=== PATIENT | male | born 1950 | race Caucasian/White ===

== ENCOUNTER → 2016-05-10 | Outpatient (CLI) | payer OTHER ==
[~2016-05-10] MED LIST: ASPCH81X PO; LISI-725 PO; LPR100 PO; LSX20 PO; PLV75 PO; PRLSR20 PO; ZCR40 PO
--- NOTE | 2016-05-11 06:13 | PAP/PSG TECHNICIAN REPORT ---
[facility] Case Liner Polysomnogram Report Study name: None Report date: 05/11/2016 Study date: 05/10/2016 Referring Physician: JACOB BAZAN D.O. Name: RYAN SHEEHAN Interpreting Physician: Ryan Bolton M.D. Date of : 1950 Case Liner: Lucy Nesbitt, PSGT. Sex: Male Age: 65 StudyType: PSG Weight: 314 lbs Height: 65 years, Height 5' 11" : BMI: 43.79 Medications: omeprazole 20 mg, Aspirin 81 mg, Clopidogrel 75 mg, Simvasatin 40 mg, Lisinopril 40 mg, Metoprolol 100 mg, Patient History 65 yr old male in room 5, here for a split night study. Pt. has had coronary heart failure in the past from coronary artery disease.Pt. also states that he wakes often during sleep, has daytime fatigue and snores himself awake. Parameters Monitored NPSG: E1-M2, E2-M1, Fp1-M2, Fp2-M1, F3-M2, F4-M2, F4-M1, C3-M2, C4-M2, C4-M1, O1-M2, O2-M2, O2-M1, T3-M2, T4-M1, P3-M2, P4-M1, CHIN1, CHIN2, HR, EKG, Legs, PFLOW, SNOR, FLOW, CFLOW, Tidal Volume, THOR, ABDO, SpO2, PLTH, CPRESS, ETCO2 Wave, ETCO2, pH Sleep Architecture Sleep Stages Time at Lights Off 10:42:07 PM STAGES Time (min.) TST (%) Time at Lights On 5:03:37 AM Wake 214.5 -- Total Recording Time (TRT) 382.00 min. N1 9.5 6 Total Sleep Period (TSP) 188.0 min. N2 157.0 94 Total Sleep Time (TST) 166.5min. N3 0.0 0 Awake Time 215.5 min. REM 0.0 0 Wake after Sleep Onset 153.5 min. Sleep Efficiency (SE) 44 % Sleep Onset Latency (DARSHANA) 61.5 min. Number of Stage 1 Shifts None Awakenings 3 Stage Changes 19 Number of REM periods N/A REM 0.0 0 REM Latency NONE min. NREM 166.5 100 Body Position Analysis Supine Right Left Side Prone Vertical Total Sleep Time (min.) 56.8 94.0 72.5 166.50 0.0 14.8 Total Sleep Time (%) 0% 56% 44% 100 0% N/A% Total Sleep Time REM (min.) 0.0 0.0 0.0 None 0.0 0.0 Total Sleep Time NREM (min.) 0.0 94.0 72.5 None 0.0 0.0 Intermittent Wake (min.) 56.8 60.5 82.4 None 0.0 14.8 Total Sleep Period (%) 0% None None None None None Arousals Myoclonus (PLM) * Events Count Index Events Count Index Spontaneous 12 4 Events Awake (PLMW) 4 1.1 Respiratory 12 4.3 Events Asleep w/ Arousal (PLMA) 5 1.8 PLM 5 2 Events Asleep w/o Arousal (PLMS) 95 34.2 Snoring 12 4 Total Asleep 100 36.0 Total 41 15 Total 104 16 Respiratory Analysis * CA OA MA CH H RERA Total Count 0 8 0 0 140 0 148 Index 0.0 2.9 0.0 0 50.5 0 53.3 Mean Duration 0.0 20.0 0.0 0.00 18.7 0.0 18.8 Longest Duration 0.0 23.2 0.0 0.00 0.0 0.0 44.1 Respiratory Event Summary Total Supine ~Supine Right Left Prone REM NREM Apneas Count 8 N/A 8 8 0 N/A N/A 8 Index 2.9 N/A 3 5.1 0.0 N/A N/A 3 Hypopneas (4% Desat) Count 140 N/A 140 84 56 N/A N/A 140 Index 50.5 N/A 50 53.6 46.3 N/A N/A 50.5 Apneas & All Hypopneas Count 148 N/A 148 92 56 N/A N/A 148 Index 53.3 N/A 53 59 46 N/A N/A 53.3 Respiratory Events (Work Distributor+All Hyp+RERA) Count 148 N/A 148 92 56 N/A N/A 148 Index 53.3 N/A 53 58.7 46.3 N/A N/A 53.3 Respiratory Related Arousal Count 12 N/A 12 9 3 N/A N/A 12 Index 4.3 N/A 4 6 2 N/A N/A 4 Snoring Analysis Supine Right Left Prone REM NREM Total Snore duration 17.8 min Snores count N/A 534 208 N/A N/A 742 742 Snore mean duration 1.4 Sec Snores index N/A 341 172 N/A N/A 267.4 267.4 TST with snoring (%) 10.7% Desaturation Event Summary: Minimum %SpO2 Event Count Mean/Min/Max Duration(sec.) Desaturation Index % Time In Bed > 90 36 24.5 / 12.3 / 49.3 80.3 7.3 86 - 90 143 21.8 / 4.5 / 55.5 37.3 62.4 81 - 85 15 21.1 / 8.8 / 29.8 8.2 29.8 76 - 80 0 N/A 0.0 0.5 71 - 75 0 N/A 0.0 0.0 66 - 70 0 N/A 0.0 0.0 61 - 65 0 N/A 0.0 0.0 56 - 60 0 N/A 0.0 0.0 51 - 55 0 N/A 0.0 0.0 < 50 0 N/A 0.0 0.0 Total REM NREM Awake <50% 0.0 min. 0.0 min. 0.0 min. 0.0 min. 51 - 60% 0.0 min. 0.0 min. 0.0 min. 0.0 min. 61 - 70% 0.0 min. 0.0 min. 0.0 min. 0.0 min. 71 - 80% 1.7 min. 0.0 min. 0.4 min. 1.3 min. 81 - 90% 339.8 min. 0.0 min. 159.7 min. 180.2 min. 91 - 100% 26.9 min. 0.0 min. 6.0 min. 20.9 min. Average 87 0 86 87 Minimum SpO2 79 N/A 80 79 Desaturation Event Index 23.9 0.0 54.8 0.0 # Desat. Events below 89% 152 N/A 152 0 Time(%) with Saturation below 89% 74.1 0.0 38.2 35.9 Time(min.) with Saturation below 89% 273.0 0.0 140.7 132.3 Time (mins) REM (mins) NREM (mins) % of TST SpO2 Below 90% 152 N/A N152 92.7 SpO2 Below 88% 56 0 0 70 Heart Rate Analysis Min (bpm) Max (bpm) Average (bpm) Awake 33 127 63 NREM 52 68 61 REM N/A N/A N/A Overall 52 68 61 Supplemental O2 Values Minimum O2 level: None Value Start Time End Time Case Liner Comments PSG Study Mr. Sheehan slept in the right, left, and supine positions. No cardiac arrhythmia or PLM's noted. No bruxism noted. Snoring was noted and scored as a 3 on a scale of 1 through 5. (0=no snoring, 5=snoring loud enough to be heard through a closed door or down the hunter way) Mr. Sheehan awoke to use the restroom one time during the night. Mr. Sheehan stated, I did not sleep as well as I do when I am in my own bed. The final report will be interpreted and signed by a sleep physician. The completed physician report will then be placed in the patient medical record. Pt. didn't sleep well, he had long periods of wakefulness. He said he had a lot of trouble breathing with everything under his nose for the testing. When he did sleep he did have respiratory events along with hypoxemia throughout the study. Therapy (cm H2O) 0 TIB (min.) 381.0 TST (min.) 166.5 Sleep Onset (min.) 61.5 REM Onset From Sleep (min.) NONE Sleep Efficiency % 44 Wakefulness (%) 56 Wakefulness (min.) 215.5 NREM 1 (%) 6 NREM 1 (min.) 9.5 NREM 2 (%) 94 NREM 2 (min.) 157.0 NREM 3 (%) 0 NREM 3 (min.) 0.0 REM (%) 0 REM (min.) 0.0 # Arousals 41 Arousal Index 15 # Snore 742 Snore Index 267.4 AHI 53.3 AHI Supine N/A AHI Non-Supine 53 NREM AHI 53.3 REM AHI N/A RDI 53.3 # Obstructive Apnea 8 # Central Apnea 0 # Mixed Apnea 0 # Hypopneas 140 RERAs 0 Total Respiratory Events 148 Time Below SpO2 89% (min.) 140.7 Mean NREM SpO2 (%) 86 Mean REM SpO2 (%) N/A Mean Sleep SpO2 (%) 86 Min NREM SpO2 (%) 80 Min REM SpO2 (%) N/A Position Supine (min.) 56.8 Position Non-supine (min.) 166.5 LM Index Sleep 36.0 LM Index NREM 36.0 LM Index REM N/A Mean Heart Rate (bpm) 61 Min Heart Rate (bpm) 52
--- NOTE | 2016-05-12 07:19 | POLYSOMNOGRAPH REPORT ---
CLINICAL DATA: A 65-year-old male with BMI of 47.8, referred by Dr. Dodge for a sleep study. He requested a split night study, but that could not be performed. He has history of coronary artery disease and wakes often during sleep. He has daytime fatigue and snoring. SLEEP ARCHITECTURE: Total sleep period was 188 minutes. Total sleep time was 166.5 minutes.This was all non-REM sleep. Sleep onset latency was 61.5 minutes. REM wasnot achieved. Sleep efficiency was 45%. Awake after sleep onset was 158.5 minutes. Sleep consisted of stage N1 6%, N2 to 94%. AROUSAL DATA: 41 arousals were recorded for an index of 15 per hour. PERIODIC LIMB MOVEMENT DATA: Moderately elevated limb movements during sleep were noted. There were 100 PLMs noted for an index of 36 per hour with arousal index of 1.8 per hour. RESPIRATORY DATA: Severe sleep apnea/hypopnea was documented. The AHI was 53.3. There were 8 obstructive apneic episodes. The longest duration of apnea was 23.2 seconds. There were 140 hypopneic episodes. The mean duration of hypopnea was 18.7 seconds. OXIMETRY DATA: Nocturnal hypoxemia was seen. Oxygen shellie was 80%. Mean saturation was 87%. ELECTROCARDIOGRAM : Heart rates ranged from 52-68 beats per minute. No arrhythmias were noted. 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 Snoring was moderate, rated 3 on a scale of 1 through 5. The patient had long periods of wakefulness both at the beginning, through the middle, and at the end of the PSG, which precluded a split night study. He had a lot of trouble breathing with all the wiring and monitoring equipment in his nose. IMPRESSION: Severe sleep apnea/hypopnea with an apnea hypopnea index of 53.3 with nocturnal hypoxemia. RECOMMENDATIONS: The patient would benefit from a repeat sleep study with CPAP. If that is going to be considered, then it is recommended that a sleep aid such as Ambien 10 mg or Lunesta 3 mg be prescribed for the night of that CPAP titration study. MTDD
== END | disposition home or self-care (01) ==
LOC: C.NEUR 20:00
PROVIDERS: ATTEND Family Medicine
DX: R06.83 Snoring (principal); R40.0 Somnolence; I25.10 Atherosclerotic heart disease of native coronary artery without angina pectoris; I50.9 Heart failure, unspecified; R73.9 Hyperglycemia, unspecified; G47.30 Sleep apnea, unspecified; R09.02 Hypoxemia

== ENCOUNTER → 2016-06-02 | Outpatient (CLI) | payer OTHER ==
[2016-06-02 12:53] LABS: BLOOD UREA NITROGEN 18 mg/dl (7-18); BUN/CREATININE RATIO 18.1 (10-20); CALCIUM 9.3 mg/dl (8.5-10.1); CARBON DIOXIDE 24 mmol/L (21-32); CHLORIDE 104 mmol/L (98-107); CREATININE 0.99 mg/dl (0.60-1.40); GLUCOSE 109 mg/dl (70-99); POTASSIUM 4.7 mmol/L (3.5-5.1); SODIUM 139 mmol/L (136-145)
[2016-06-02 12:58] LABS: ALB/GLOB RATIO 1.1 (0.9-2); ALKALINE PHOSPHATASE 62 U/L (45-117); ALT/SGPT 58 U/L (12-78); AST/SGOT 45 U/L (15-37)
[2016-06-02 13:05] LABS: CHOLESTEROL/HDL RATIO 3.7
[2016-06-02 13:29] LABS: ESTIMATED AVERAGE GLUCOSE 128 mg/dl; HA1C FLAG Normal (Normal)
== END | disposition home or self-care (01) ==
LOC: C.LABPBG 09:01
PROVIDERS: ATTEND Internal Medicine
DX: I25.10 Atherosclerotic heart disease of native coronary artery without angina pectoris (principal); I10 Essential (primary) hypertension; E78.5 Hyperlipidemia, unspecified; R73.9 Hyperglycemia, unspecified

== ENCOUNTER → 2016-07-02 | Outpatient (CLI) | payer OTHER ==
--- NOTE | 2016-07-03 06:30 | PAP/PSG TECHNICIAN REPORT ---
[facility] Press Operator Apprentice Polysomnogram Report Study name: None Report date: 07/03/2016 Study date: 07/02/2016 Referring Physician: Araceli Westbrook PA-C Name: RYAN SHEEHAN Interpreting Physician: Ryan Bolton M.D. Date of : 1950 Press Operator Apprentice: Hernan Marte RPSGT. Sex: Male Age: 65 StudyType: PSG PAP Weight: 314 lbs Height: 65 years, Height 5' 10" BMI: 45.05 Medications: OMEPRAZOLE 20 MG, ASPIRIN 81 MG, CLOPIDOGREL BISULFATE 75 MG, SIMVASTATIN 40 MG, LISINOPRIL 40 MG, METOPROLOL TARTRATE 100 MG Patient History PATIENT HAD A SLEEP STUDY DONE IN APRIL OF 2016. HE WAS POSITIVE FOR VIVIENNE WITH AN AHI OF 53.3/HR. HE IS HERE TODAY FOR A CPAP TITRATION. RM 1 Parameters Monitored NPSG: E1-M2, E2-M1, Fp1-M2, Fp2-M1, F3-M2, F4-M2, F4-M1, C3-M2, C4-M2, C4-M1, O1-M2, O2-M2, O2-M1, T3-M2, T4-M1, P3-M2, P4-M1, CHIN1, CHIN2, HR, EKG, Legs, PFLOW, SNOR, FLOW, CFLOW, Tidal Volume, THOR, ABDO, SpO2, PLTH, CPRESS, ETCO2 Wave, ETCO2, pH Sleep Architecture Sleep Stages Time at Lights Off 10:14:00 PM STAGES Time (min.) TST (%) Time at Lights On 5:33:30 AM Wake 52.5 -- Total Recording Time (TRT) 440.00 min. N1 20.5 5 Total Sleep Period (TSP) 416.5 min. N2 209.5 54 Total Sleep Time (TST) 387.0min. N3 87.0 22 Awake Time 53.0 min. REM 70.0 18 Wake after Sleep Onset 30.0 min. Sleep Efficiency (SE) 88 % Sleep Onset Latency (DARSHANA) 22.5 min. Number of Stage 1 Shifts None Awakenings 26 Stage Changes 107 Number of REM periods 5 REM 70.0 18 REM Latency 88.5 min. NREM 317.0 82 Body Position Analysis Supine Right Left Side Prone Vertical Total Sleep Time (min.) 223.2 192.0 0.0 192.00 0.0 0.0 Total Sleep Time (%) 50% 50% 0% 50 0% N/A% Total Sleep Time REM (min.) 41.0 29.0 0.0 None 0.0 0.0 Total Sleep Time NREM (min.) 154.0 163.0 0.0 None 0.0 0.0 Intermittent Wake (min.) 28.2 24.3 0.0 None 0.0 0.0 Total Sleep Period (%) 51% None None None None None Arousals Myoclonus (PLM) * Events Count Index Events Count Index Spontaneous 30 5 Events Awake (PLMW) 68 77.7 Respiratory 6 1.1 Events Asleep w/ Arousal (PLMA) 9 1.4 PLM 9 1 Events Asleep w/o Arousal (PLMS) 90 14.0 Snoring 5 1 Total Asleep 99 15.3 Total 50 8 Total 167 23 Respiratory Analysis * CA OA MA CH H RERA Total Count 0 0 0 0 51 1 51 Index 0.0 0.0 0.0 0 7.9 0 8.1 Mean Duration 0.0 0.0 0.0 0.00 17.2 15.5 17.2 Longest Duration 0.0 0.0 0.0 0.00 0.0 15.5 30.0 Respiratory Event Summary Total Supine ~Supine Right Left Prone REM NREM Apneas Count 0 0 0 0 N/A N/A 0 0 Index 0.0 0 0 0.0 N/A N/A 0 0 Hypopneas (4% Desat) Count 51 25 26 26 N/A N/A 6 45 Index 7.9 7.7 8 8.1 N/A N/A 5.1 8.5 Apneas & All Hypopneas Count 51 25 26 26 N/A N/A 6 45 Index 7.9 8 8 8 N/A N/A 5.1 8.5 Respiratory Events (Photography [employer] Prints Curator+All Hyp+RERA) Count 51 26 26 26 N/A N/A 6 45 Index 8.1 8 8 8.1 N/A N/A 6.0 8.5 Respiratory Related Arousal Count 6 26 3 3 N/A N/A 1 6 Index 1.1 1 1 1 N/A N/A 1 1 Snoring Analysis Supine Right Left Prone REM NREM Total Snore duration 2.0 min Snores count 32 30 N/A N/A 11 51 62 Snore mean duration 1.9 Sec Snores index 10 9 N/A N/A 9.4 9.7 9.6 TST with snoring (%) 0.5% Desaturation Event Summary: Minimum %SpO2 Event Count Mean/Min/Max Duration(sec.) Desaturation Index % Time In Bed > 90 72 28.0 / 15.0 / 54.8 43.1 22.8 86 - 90 50 24.2 / 10.0 / 52.3 9.0 75.5 81 - 85 0 N/A 0.0 1.6 76 - 80 0 N/A 0.0 0.0 71 - 75 0 N/A 0.0 0.0 66 - 70 0 N/A 0.0 0.0 61 - 65 0 N/A 0.0 0.0 56 - 60 0 N/A 0.0 0.0 51 - 55 0 N/A 0.0 0.0 < 50 0 N/A 0.0 0.0 Total REM NREM Awake <50% 0.0 min. 0.0 min. 0.0 min. 0.0 min. 51 - 60% 0.0 min. 0.0 min. 0.0 min. 0.0 min. 61 - 70% 0.0 min. 0.0 min. 0.0 min. 0.0 min. 71 - 80% 0.0 min. 0.0 min. 0.0 min. 0.0 min. 81 - 90% 339.2 min. 47.0 min. 264.2 min. 28.0 min. 91 - 100% 100.3 min. 23.0 min. 52.8 min. 24.5 min. Average 89 89 89 90 Minimum SpO2 83 83 83 86 Desaturation Event Index 12.4 12.0 9.5 33.1 # Desat. Events below 89% 83 12 47 24 Time(%) with Saturation below 89% 34.5 7.3 25.2 2.0 Time(min.) with Saturation below 89% 151.6 32.1 110.9 8.7 Time (mins) REM (mins) NREM (mins) % of TST SpO2 Below 90% 63 14 N49 64.2 SpO2 Below 88% 26 0 0 12 Heart Rate Analysis Min (bpm) Max (bpm) Average (bpm) Awake 51 67 57 NREM 50 65 56 REM 51 60 55 Overall 50 65 56 Supplemental O2 Values Minimum O2 level: None Value Start Time End Time Press Operator Apprentice Comments Mr. Sheehan slept in the right, left, supine and prone positions. PVC's noted. Leg movements noted. No bruxism noted. CPAP was initiated at +4 CMH2O and up-titrated to an optimal level of + [id number], which nearly eliminated all respiratory events and snoring. A [employer] size medium simplus mask was used during titration Mr. Sheehan awoke to use the restroom 0 times during the night. Mr. Sheehan stated I slept as well as I do when I am in my own bed. 1l/min was added at 4:24 am and was increased to 2l/min at 4:41 am. The final report will be interpreted and signed by a sleep physician. The completed physician report will then be placed in the patient medical record. Therapy Event: Therapy (cm H20) 4 8 9 10 11 12 13 15 16 Total Time at Pressure (min.) 3.9 25.3 91.4 51.7 23.7 21.0 20.1 7.6 194.8 TST at Pressure (min.) 0.0 5.1 91.4 47.2 22.2 19.5 13.1 7.6 180.8 # Periods 1 1 1 1 1 1 1 1 1 Sleep Onset (min.) N/A 18.6 0.0 0.0 0.0 0.0 0.0 0.0 0.0 REM Onset (min.) N/A N/A 81.9 0.0 N/A 14.5 0.0 N/A 67.8 Sleep Efficiency % 0 20 100 91 93 92 65 100 92 Wakefulness (%) 100.0 79.7 0.0 8.7 6.3 7.2 34.8 0.0 7.2 Wakefulness (min.) 3.9 20.1 0.0 4.5 1.5 1.5 7.0 0.0 14.0 NREM 1 (%) 0.0 9.9 1.1 5.8 10.5 7.2 7.7 5.9 4.1 NREM 1 (min.) 0.0 2.5 1.0 3.0 2.5 1.5 1.6 0.4 8.0 NREM 2 (%) 0.0 10.4 30.5 69.1 74.7 64.2 25.1 94.1 51.2 NREM 2 (min.) 0.0 2.6 27.9 35.8 17.7 13.5 5.0 7.2 99.8 NREM 3 (%) 0.0 0.0 58.0 0.0 8.4 0.0 0.0 0.0 16.4 NREM 3 (min.) 0.0 0.0 53.0 0.0 2.0 0.0 0.0 0.0 32.0 REM (%) 0.0 0.0 10.4 16.4 0.0 21.5 32.3 0.0 21.0 REM (min.) 0.0 0.0 9.5 8.5 0.0 4.5 6.5 0.0 41.0 # Arousals N/A 0 6 7 10 3 4 2 18 Arousal Index N/A 0.0 3.9 8.9 27.0 9.3 18.3 15.8 6.0 # Snore N/A 0 13 7 8 2 2 1 29 Snore Index N/A 0.0 8.5 8.9 21.6 6.2 9.2 7.9 9.6 AHI N/A 58.6 1.3 7.6 18.9 12.3 41.2 23.7 5.0 AHI Supine N/A N/A N/A N/A N/A N/A 64.1 23.7 5.0 AHI Non-Supine N/A 58.6 1.3 7.6 18.9 12.3 18.3 N/A N/A NREM AHI N/A 58.6 1.5 9.3 18.9 8.0 63.6 23.7 5.6 REM AHI N/A N/A 0.0 0.0 N/A 26.7 18.5 N/A 2.9 RDI N/A 58.6 1.3 7.6 18.9 12.3 41.2 23.7 5.3 # Obstructive N/A 0 0 0 0 0 0 0 0 # Central Ap N/A 0 0 0 0 0 0 0 0 # Mixed N/A 0 0 0 0 0 0 0 0 # Hypopneas N/A 5 2 6 7 4 9 3 15 RERAS N/A 0 0 0 0 0 0 0 1 Total Respiratory Events N/A 5 2 6 7 4 9 3 16 Time Below SpO2 89.00% (min.) 0.0 2.8 53.1 8.4 2.0 3.4 4.3 3.6 65.1 Mean NREM SpO2 (%) N/A 88 88 90 90 90 88 88 89 Mean REM SpO2 (%) N/A N/A 87 89 N/A 89 90 N/A 89 Mean Sleep SpO2 (%) N/A 88 88 89 90 90 89 88 89 Min NREM SpO2 (%) N/A 84 83 85 87 87 83 86 84 Min REM SpO2 (%) N/A N/A 83 83 N/A 87 87 N/A 84 Position Supine (min.) 0.0 0.0 0.0 0.0 0.0 0.0 6.6 7.6 180.8 Position Non-supine (min.) 0.0 5.1 91.4 47.2 22.2 19.5 6.5 0.0 0.0 LM Index Sleep N/A 35.1 8.5 22.9 35.1 27.8 22.9 31.6 11.3 LM Index NREM N/A 35.1 5.9 26.3 35.1 16.1 27.3 31.6 7.3 LM Index REM N/A N/A 31.5 7.1 N/A 66.7 18.5 N/A 24.9 Mean Heart Rate (bpm) N/A 56 56 55 55 54 55 56 57 Min Heart Rate (bpm) N/A 53 52 50 52 51 51 52 52
--- NOTE | 2016-07-05 15:00 | POLYSOMNOGRAPH REPORT ---
CLINICAL DATA: 65-year-old male with BMI of 45 referred by Araceli Westbrook PA-C for CPAP titration study. He had a baseline sleep study done in April 2016, which showed severe VIVIENNE with an AHI of 53.3. SLEEP ARCHITECTURE: Total sleep period was 416.5 minutes. Total sleep time was 387 minutes divided between 317 minutes of non-REM sleep and 70 minutes of REM sleep. Sleep onset latency was 22.5 minutes. REM latency was 88.5 minutes. Sleep efficiency was 88%. Wake after sleep onset was 30 minutes. Sleep consisted of stage N1 5%, N2 54%, N3 22%, REM 18%. AROUSAL DATA: 50 arousals were recorded for an index of 8 per hour. 30 were spontaneous. PLM DATA: 99 limb movements during sleep were noted for an index of 15.2 per hour with arousal index of 41.4 per hour. RESPIRATORY DATA: The AHI was 7.9. There were 51 hypopneic episodes. The mean duration of hypopnea was 17.2 seconds. OXIMETRY DATA: Nocturnal hypoxemia was seen. Oxygen shellie was 83%. Mean saturation was 89%. Time below 88% was 26 minutes. EKG: Heart rates ranged from 50-65 beats per minute. PVCs were noted. 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 CPAP was titrated up to 16 cm of water pressure using a [employer] size medium Simplus mask. In spite of elimination of the patient's sleep apnea, he continued to have nocturnal hypoxemia and therefore at 4:24 a.m. the patient was started on oxygen and it was increased total at 2 liters per minute. With the addition of oxygen, oxygen saturation did improve significantly. At his final pressure setting, the patient slept for 180.8 minutes with an AHI of 5. IMPRESSION: Severe sleep apnea/hypopnea and severe nocturnal hypoxemia corrected with CPAP 16 cm of water pressure with oxygen 2 liters per minute using a [employer] medium Simplus mask. RECOMMENDATIONS: The patient should be started on the above noted treatment regimen and seen back in followup within 90 days to document efficacy and compliance. MTDD
== END | disposition home or self-care (01) ==
LOC: C.NEUR 20:00
PROVIDERS: ATTEND Physician Assistant Medical
DX: G47.33 Obstructive sleep apnea (adult) (pediatric) (principal); R06.83 Snoring; R40.0 Somnolence

== ENCOUNTER → 2016-12-20 | Outpatient (CLI) | payer OTHER ==
[2016-12-20 12:09] LABS: BASO % 0.3 %; BASO ABS # 0.02 K/uL (0-0.2); COMPLETE YES; EOS % 2.2 %; HEMATOCRIT 50.3 % (42-52); IG% 0.2 %; LYMPH % 29.9 %; LYMPH ABS # 1.91 K/uL (1.2-3.4); MEAN CELL VOLUME 92.1 fL (80-100); MEAN CORPUSCULAR HEMOGLOBIN 29.7 pg (25-34); MEAN CORPUSCULAR HGB CONC 32.2 g/dl (32-36); MEAN PLATELET VOLUME 9.8 fL (7.4-10.4); MONO % 11.9 %; NEUT % 55.5 %; PLATELET COUNT 257 K/uL (130-400); RED BLOOD COUNT 5.46 M/uL (4.7-6.1); WHITE BLOOD COUNT 6.39 K/uL (4.8-10.8)
[2016-12-20 12:18] LABS: ALT/SGPT 55 U/L (12-78); AST/SGOT 41 U/L (15-37); BLOOD UREA NITROGEN 20 mg/dl (7-18); CALCIUM 9.3 mg/dl (8.5-10.1); CARBON DIOXIDE 27 mmol/L (21-32); CHLORIDE 105 mmol/L (98-107); GLUCOSE 103 mg/dl (70-99); POTASSIUM 4.8 mmol/L (3.5-5.1); SODIUM 138 mmol/L (136-145)
[2016-12-20 12:28] LABS: ALKALINE PHOSPHATASE 67 U/L (45-117); PROSTATE SPECIFIC ANTIGEN 0.604 ng/ml (0.000-4.000)
[2016-12-20 12:34] LABS: ESTIMATED AVERAGE GLUCOSE 128 mg/dl; HA1C FLAG Normal (Normal)
--- NOTE | 2016-12-27 08:55 | CODING QUERY MEDICAL NECESSITY ---
SUPPORTING DIAGNOSIS NEEDED Dr. Ashley, A supporting diagnosis is required for the test/procedure performed on this patient in order for us to be reimbursed by the patient's insurance. Please provide a supporting diagnosis for the following test/procedure listed below next to the test name along with your signature. *If there is no additional diagnosis for this patient that would support the following test/procedure please document that below next to the test/procedure. Test(s)/Procedure(s) that require a supporting diagnosis: * [id number] PSA DIAGNOSIS: DATE OF SERVICE: 12/20/16 Provider Signature: Date: Thank you David Vela [facility] Information Management Once completed, please kindly fax back to [phone] For questions please call [phone]
== END | disposition home or self-care (01) ==
LOC: C.LABPBG 09:53
PROVIDERS: ATTEND Internal Medicine
DX: I25.10 Atherosclerotic heart disease of native coronary artery without angina pectoris (principal); I10 Essential (primary) hypertension; R04.0 Epistaxis; Z68.42 Body mass index [BMI] 45.0-49.9, adult; G47.34 Idiopathic sleep related nonobstructive alveolar hypoventilation; R73.09 Other abnormal glucose; E78.5 Hyperlipidemia, unspecified; E78.6 Lipoprotein deficiency; Z12.5 Encounter for screening for malignant neoplasm of prostate

== ENCOUNTER 2017-05-16 11:06 | Emergency (ER) | payer OTHER ==
[~2017-05-16] VITALS: Ht 177.8 cm; Wt 143.0 kg
[2017-05-16 11:18] VITALS: Ht 177.8 cm; Wt 143.0 kg
[2017-05-16 12:21] VITALS: TEMP 36.6
[2017-05-16 12:29] LABS: BASO % 0.5 %; BASO ABS # 0.03 K/uL (0-0.2); EOS % 1.7 %; EOS ABS # 0.11 K/uL (0-0.5); HEMATOCRIT 49.1 % (42-52); HEMOGLOBIN 16.6 g/dL (14.0-18.0); IG# 0.01 K/uL (0.00-0.02); LYMPH % 34.8 %; MEAN CELL VOLUME 91.1 fL (80-100); MEAN CORPUSCULAR HEMOGLOBIN 30.8 pg (25-34); MEAN CORPUSCULAR HGB CONC 33.8 g/dl (32-36); MEAN PLATELET VOLUME 9.2 fL (7.4-10.4); MONO ABS # 0.73 K/uL (0.11-0.59); NEUT % 51.8 %; NEUT ABS # 3.43 K/uL (1.4-6.5); PLATELET COUNT 223 K/uL (130-400); RED CELL DISTRIBUTION WIDTH CV 12.9 % (11.5-14.5); RED CELL DISTRIBUTION WIDTH SD 42.8 fL (36.4-46.3); WHITE BLOOD COUNT 6.61 K/uL (4.8-10.8)
[2017-05-16 12:41] LABS: PTT PATIENT 27.7 SECONDS (21.0-31.0)
[2017-05-16 12:48] LABS: ALBUMIN 3.9 gm/dl (3.4-5.0); CALCIUM 9.6 mg/dl (8.5-10.1); CREATININE 1.11 mg/dl (0.60-1.40); POTASSIUM 4.5 mmol/L (3.5-5.1)
[2017-05-16 12:50] LABS: TOTAL PROTEIN 7.6 gm/dl (6.4-8.2)
[2017-05-16 13:20] VITALS: BP 111/65; PULSE 54; O2SAT 93
--- NOTE | 2017-05-16 17:13 | EMERGENCY ROOM VISIT NOTE ---
History Report prepared by Ashanti: Darvin Eastman Under the Supervision of: Dr. Neo Mesa M.D. First contact with patient: 11:34 Chief Complaint: GI ASSESSMENT Stated Complaint: PASSING BLOOD Nursing Triage Summary: c/o GI bleed a couple weeks ago it started and it has been getting progressively worse pt states its bright red and turns the bowl red diffuse abd pain pt is on ASA and plavix History of Present Illness The patient is a 66 year old male who presents to the Emergency Room with complaints of worsening rectal bleeding that started a couple weeks ago. He says that he only having occasional and minimal rectal bleeding initially, but over the past few days the bleeding has worsened, and for the past couple days, every bowel movement has been somewhat bloody. The patient states that the blood is bright red, and it colors the water in the commode. He notes that the blood is mixed in with the stool, and the stool is "diarrhea-like". The patient adds that he has been having a cramping sensation in his abdomen, which gets better after having a bowel movement. The patient denies any weakness, lightheadedness, fevers, vomiting, changes in breathing, chest pain, urinary symptoms, or pain with defecation. The patient states that his stools were dark but not black. He notes that he has had a bit of rectal bleeding in the past, but nothing as bad as his current bleeding. The patient says that he is on Plavix and Aspirin for heart issues including stent placement. He says that he does not feel like he is having a heart attack. The patient says that he is not on any other blood thinners. He notes that he has a history of colonoscopies, the last one being 5 years ago. He had polyps that were removed, but diverticulosis was never noted. The patient has another colonoscopy scheduled for June. Source of History: patient, spouse/significant other Onset: A couple weeks ago Position: other (rectal) Symptom Intensity: bright red and colors water in commode Quality: other (bleeding) Timing: worsening Associated Symptoms: + abdominal pain (cramping), + diarrhea, No fevers, No chest pain, No SOB (any changes), No vomiting, No urinary symptoms, No weakness (or lightheadedness) Note: Associated symptoms: Denies black stools but notes they are dark. Denies pain with defecation. Review of Systems See HPI for pertinent positives & negatives. A total of 10 systems reviewed and were otherwise negative. Past Medical & Surgical Medical Problems: (1) Chest pain (2) Heart disease (3) HTN (hypertension) Surgical Problems: (1) Post-operative state Family History Diabetes mellitus FH: heart disease Hypertension Social History Smoking Status: Former Smoker Alcohol Use: none Marital Status: Housing Status: lives with family Occupation Status: retired Current/Historical Medications Scheduled Aspirin (Aspirin Chewable), 81 MG PO QAM Clopidogrel Bisulfate (Clopidogrel), 75 MG PO QAM Lisinopril (Zestril), 20 MG PO QAM Metoprolol Tartrate (Metoprolol Tartrate), 100 MG PO BID Omeprazole (Prilosec), 20 MG PO QAM Simvastatin (Simvastatin), 40 MG PO QAM Scheduled PRN Furosemide (Furosemide), 20 MG PO QAM PRN for edema, dyspnea Allergies Coded Allergies: No Known Allergies (Unverified , 05/16/17) Physical Exam Vital Signs Date Time Temp Pulse Resp B/P (MAP) Pulse Ox O2 Delivery O2 Flow Rate FiO2 05/16/17 13:20 54 18 111/65 93 Room Air 05/16/17 12:30 54 05/16/17 12:21 36.6 57 18 117/67 93 Room Air 05/16/17 11:18 36.6 54 16 149/87 93 Physical Exam Constitutional: Vital signs reviewed. Eyes: Pupils are equal round reactive to light. Conjunctiva are noninjected. ENT: Pharynx is clear without erythema or exudate. Mucous membranes are moist. Neck supple without meningeal signs. Respiratory: Clear to auscultation bilaterally. Breath sounds are equal bilaterally. Cardiovascular: Regular rate and rhythm. No rubs or gallops. GI: Soft, nondistended and nontender. Bowel sounds are present. Rectal: Skin tag at 9 o'clock position. No fissures or hemorrhoids. Scant amount of blood, no stool. Musculoskeletal: No peripheral edema. No lower extremity tenderness. Integumentary: No cyanosis. Neurological: The patient is awake and alert. No focal deficits. Psychiatric: Normal affect. Medical Decision & Procedures Laboratory Results 05/16/17 11:55 Red Blood Count 5.39, Mean Corpuscular Volume 91.1, Mean Corpuscular Hemoglobin 30.8, Mean Corpuscular Hemoglobin Concent 33.8, Mean Platelet Volume 9.2, Neutrophils (%) (Auto) 51.8, Lymphocytes (%) (Auto) 34.8, Monocytes (%) (Auto) 11.0, Eosinophils (%) (Auto) 1.7, Basophils (%) (Auto) 0.5, Neutrophils # (Auto ) 3.43, Lymphocytes # (Auto) 2.30, Monocytes # (Auto) 0.73, Eosinophils # (Auto ) 0.11, Basophils # (Auto) 0.03 05/16/17 11:55 Test 05/16/17 11:55 White Blood Count 6.61 K/uL (4.8-10.8) Red Blood Count 5.39 M/uL (4.7-6.1) Hemoglobin 16.6 g/dL (14.0-18.0) Hematocrit 49.1 % (42-52) Mean Corpuscular Volume 91.1 fL (80-100) Mean Corpuscular Hemoglobin 30.8 pg (25-34) Mean Corpuscular Hemoglobin Concent 33.8 g/dl (32-36) Platelet Count 223 K/uL (130-400) Mean Platelet Volume 9.2 fL (7.4-10.4) Neutrophils (%) (Auto) 51.8 % Lymphocytes (%) (Auto) 34.8 % Monocytes (%) (Auto) 11.0 % Eosinophils (%) (Auto) 1.7 % Basophils (%) (Auto) 0.5 % Neutrophils # (Auto) 3.43 K/uL (1.4-6.5) Lymphocytes # (Auto) 2.30 K/uL (1.2-3.4) Monocytes # (Auto) 0.73 K/uL (0.11-0.59) Eosinophils # (Auto) 0.11 K/uL (0-0.5) Basophils # (Auto) 0.03 K/uL (0-0.2) RDW Standard Deviation 42.8 fL (36.4-46.3) RDW Coefficient of Variation 12.9 % (11.5-14.5) Immature Granulocyte % (Auto) 0.2 % Immature Granulocyte # (Auto) 0.01 K/uL (0.00-0.02) Prothrombin Time 10.7 SECONDS (9.0-12.0) Prothromb Time International Ratio 1.0 (0.9-1.1) Activated Partial Thromboplast Time 27.7 SECONDS (21.0-31.0) Partial Thromboplastin Ratio 1.1 Anion Gap 8.0 mmol/L (3-11) Est Creatinine Clear Calc Drug Dose 91.0 ml/min Estimated GFR () 78.7 Estimated GFR (Non- 67.9 BUN/Creatinine Ratio 18.4 (10-20) Calcium Level 9.6 mg/dl (8.5-10.1) Total Bilirubin 0.5 mg/dl (0.2-1) Direct Bilirubin 0.1 mg/dl (0-0.2) Aspartate Amino Transf (AST/SGOT) 34 U/L (15-37) Alanine Aminotransferase (ALT/SGPT) 59 U/L (12-78) Alkaline Phosphatase 58 U/L (45-117) Total Protein 7.6 gm/dl (6.4-8.2) Albumin 3.9 gm/dl (3.4-5.0) Lipase 104 U/L (73-393) Laboratory results as reviewed by me. ED Course 1135: The patient was evaluated in room C10. A complete history and physical exam was performed. 1301: I reevaluated the patient and talked to him about his test results. We will page Dr. Ashley to see if he can move up the patient's colonoscopy which is scheduled for June. 1310: I discussed the patient with Dr. Ashley - [facility] medicine - he will arrange for an earlier colonoscopy and will see the patient in the office. 1311: Upon reevaluation, the patient appeared to be resting comfortably. I reviewed return instructions with the patient and his . They verbalized agreement of the treatment plan. The patient was discharged home. Medical Decision This is a 66-year-old male who presents with rectal bleeding. Differential diagnosis includes diverticulosis, GI bleed, AVM, anemia, hemorrhoid, mass. I did perform a limited focused review of portions of the patient's old chart on the electronic medical record. The patient has had no recent pertinent visits to this hospital. I did evaluate the patient as noted above. IV access was established. I did order and review the patient's blood work as noted in the electronic medical record. He is not anemic. The patient is hemodynamically stable. I discussed his test results with him. He states he does not have a significant amount of bleeding with his bowel movements but they are persistent. I did discuss the case with Dr. Fabian Ashley. He will follow with the patient as an outpatient and schedule an earlier colonoscopy for him. I did discuss the plan with the patient. He was advised to return immediately should he have worsening symptoms or develop new symptoms as described below. Medication Reconcilliation Current Medication List: was personally reviewed by me Blood Pressure Screening Patient's blood pressure: Elevated blood pressure Consults Time Called: 1307 Consulting Physician: Dr. Ashley - [facility] [place] [facility] medicine Returned Call: 1310 I discussed the patient with Dr. Gabi Helton [facility] [place] [facility] - he will arrange for an earlier colonoscopy and will see the patient in the office. Impression Primary Impression: Rectal bleeding Scribe Attestation The scribe's documentation has been prepared under my direct and personally reviewed by me in its entirety. I confirm that the note above accurately reflects all work, treatment, procedures, and medical decision making performed by me. Departure Information Dispostion Home / Self-Care Referrals Fabian Ashley M.D. (PCP) Patient Instructions Bleeding Rectal, My [facility] Additional Instructions You have been examined and treated today on an emergency basis only. This is not a substitute for, or an effort to provide, complete comprehensive medical care. It is impossible to recognize and treat all injuries or illnesses in a single emergency department visit. It is therefore important that you follow up closely with your physician. Call as soon as possible for an appointment. Return for worsening symptoms or if you develop black or tarry stools, shortness of breath, chest pain or discomfort, weakness or lightheadedness, abdominal pain or any other concerning symptoms.
== END 2017-05-16 13:27 | disposition home or self-care (01) ==
LOC: C.EDB 11:07 → C.EDC 13:27
DX: K62.5 Hemorrhage of anus and rectum (principal); I10 Essential (primary) hypertension; Z79.01 Long term (current) use of anticoagulants; Z79.82 Long term (current) use of aspirin; Z95.5 Presence of coronary angioplasty implant and graft; Z87.891 Personal history of nicotine dependence; Z83.3 Family history of diabetes mellitus; Z82.49 Family history of ischemic heart disease and other diseases of the circulatory system

== ENCOUNTER → 2017-05-19 | Outpatient (CLI) | payer OTHER ==
[~2017-05-19] MED LIST changes: +FURO-85 PO; +LISI40TA PO
[2017-05-19 12:11] LABS: BASO % 0.3 %; BASO ABS # 0.02 K/uL (0-0.2); EOS % 1.3 %; EOS ABS # 0.08 K/uL (0-0.5); HEMATOCRIT 46.3 % (42-52); HEMOGLOBIN 16.1 g/dL (14.0-18.0); IG# 0.01 K/uL (0.00-0.02); LYMPH % 32.7 %; LYMPH ABS # 2.02 K/uL (1.2-3.4); MEAN CELL VOLUME 91.1 fL (80-100); MEAN CORPUSCULAR HEMOGLOBIN 31.7 pg (25-34); MEAN CORPUSCULAR HGB CONC 34.8 g/dl (32-36); MONO % 8.4 %; MONO ABS # 0.52 K/uL (0.11-0.59); NEUT % 57.1 %; NEUT ABS # 3.53 K/uL (1.4-6.5); PLATELET COUNT 230 K/uL (130-400); RED CELL DISTRIBUTION WIDTH CV 12.8 % (11.5-14.5); RED CELL DISTRIBUTION WIDTH SD 43.1 fL (36.4-46.3); WHITE BLOOD COUNT 6.18 K/uL (4.8-10.8)
== END | disposition home or self-care (01) ==
LOC: C.LABPBG 10:57
PROVIDERS: ATTEND Internal Medicine
DX: K62.5 Hemorrhage of anus and rectum (principal); R19.7 Diarrhea, unspecified

== ENCOUNTER → 2017-05-30 | Day surgery (SDC) | payer OTHER ==
[2017-05-25 11:35] VITALS: Ht 177.8 cm; Wt 143.2 kg
[~2017-05-30] VITALS: Ht 177.8 cm; Wt 143.2 kg
[~2017-05-30] MED LIST changes: +LIDOCAINE HCL 2% 2 ML VIAL (20MG/ML) ONE; -LISI-725 PO; -LSX20 PO; +PROPOFOL IV EMULSION 10 MG/ML 20 ML VIAL IV ONE; +SODIUM CHLORIDE 0.9% 500ML 500 ML IV ONE
[2017-05-30 09:24] VITALS: TEMP 36.9
--- NOTE | 2017-05-30 09:46 | Endo History and Physical ---
History & Physical Date of Service: May 30, 2017. Chief Complaint: Rectal bleeding Referring Physician: Fabian Ashley History of Present Illness 66 yo CM who presents for colonoscopy secondary to rectal bleeding. Past Medical History Angioplasty/Stent, Reflux, High Cholesterol, Sleep Apnea, Heart Disease, Hypertension, PR Past Surgical History Hx Cardiac Surgery: Yes (MULTIPLE HEART CATH, STENTS X2; CABG X2 VESSELS) Hx Internal Defibrillator: No Hx Pacemaker: No Hx Abdominal Surgery: No Hx of Implantable Prosthesis: No Hx Post-Op Nausea and Vomiting: No Hx Cancer Surgery: Yes (SKIN CANCER EXCISION FROM LT ARM) Hx Thoracic Surgery: No Hx Orthopedic: Yes (LT/RT KANE) Hx Urinary Tract Surgery: No Family History None Social History Smoking Status: Former Smoker Hx Substance Use: No Hx Alcohol Use: Yes (SOCIAL/OCCASIONAL) Allergies Coded Allergies: No Known Allergies (Unverified , 05/30/17) Current Medications Reported Home Medications Medications Dose Route/Sig Max Daily Dose Days Date Category Lasix (Furosemide) 20 Mg Tab 20 Mg PO DAILY PRN 05/25/17 Reported Zestril (Lisinopril) 40 Mg Tab 40 Mg PO QAM 05/25/17 Reported Aspirin Chewable (Aspirin) 81 Mg Chew 81 Mg PO QAM 04/08/15 Reported Simvastatin 40 Mg Tab 40 Mg PO QAM 08/16/14 Reported Prilosec (Omeprazole) 20 Mg Capcr 20 Mg PO QAM 08/16/14 Reported Clopidogrel (Clopidogrel Bisulfate) 75 Mg Tab 75 Mg PO QAM 08/16/14 Reported Metoprolol Tartrate 100 Mg Tab 100 Mg PO BID 08/16/14 Reported Vital Signs Weight (Kilograms): 143.18 Height (Feet): 5 Height (Inches): 10 Date Time Temp Pulse Resp B/P (MAP) Pulse Ox O2 Delivery O2 Flow Rate FiO2 05/30/17 09:42 56 20 193/115 (141) 94 Room Air 05/30/17 09:24 36.9 57 20 182/92 (122) 94 Room Air Physical Exam General Appearance: WD/WN, no apparent distress Respiratory/Chest: Auscultation: breath sounds normal Cardiovascular: Heart Auscultation: RRR Abdomen: Bowel Sounds: normal Inspection & Palpation: soft, non-distended, no tenderness, guarding & rebound Assessment and Plan Assessment: 66 yo CM who presents for colonoscopy secondary to rectal bleeding. Plan: Proceed with colonoscopy.
--- NOTE | 2017-05-30 10:47 | GI REPORT ---
Procedure Date: 05/30/2017 9:46 AM Procedure: Colonoscopy Indications: Rectal bleeding Medicines: Monitored Anesthesia Care Complications: No immediate complications. Estimated Blood Loss: Estimated blood loss: none. Procedure: Pre-Anesthesia Assessment: - Prior to the procedure, a History and Physical was performed, and patient medications and allergies were reviewed. The patient's tolerance of previous anesthesia was also reviewed. The risks and benefits of the procedure and the sedation options and risks were discussed with the patient. All questions were answered, and informed consent was obtained. Prior Anticoagulants: The patient last took aspirin 7 days and Plavix (clopidogrel) 7 days prior to the procedure. ASA Grade Assessment: III - A patient with severe systemic disease. After reviewing the risks and benefits, the patient was deemed in satisfactory condition to undergo the procedure. After I obtained informed consent, the scope was passed under direct vision. Throughout the procedure, the patient's blood pressure, pulse, and oxygen saturations were monitored continuously. The scope was introduced through the anus and advanced to the terminal ileum. The colonoscopy was performed without difficulty. The patient tolerated the procedure well. The quality of the bowel preparation was good. The terminal ileum, ileocecal valve, appendiceal orifice, and rectum were photographed. Findings: The perianal and digital rectal examinations were normal. Four sessile polyps were found in the ascending colon. The polyps were 4 to 8 mm in size. These polyps were removed with a hot snare. Resection and retrieval were complete. To prevent bleeding after the polypectomy, one hemostatic clip was successfully placed (MR conditional). There was no bleeding at the end of the procedure. Non-bleeding internal hemorrhoids were found during retroflexion. The hemorrhoids were small. Impression: - Four 4 to 8 mm polyps in the ascending colon, removed with a hot snare. Resected and retrieved. Clip (MR conditional) was placed. - Non-bleeding internal hemorrhoids. Recommendation: - Resume previous diet. - Continue present medications. - Await pathology results. - Repeat colonoscopy for surveillance based on pathology results. Davonte Morton, DO 05/30/2017 10:46:53 AM This report has been signed electronically. Note Initiated On: 05/30/2017 9:46 AM I attest to the content of the Intraoperative Record and orders documented therein, exceptions below
--- NOTE | 2017-05-30 10:49 | Discharge Instructions ---
Endoscopy Patient Instructions Date / Procedure(s) Performed May 30, 2017. Colonoscopy Allergy Information Coded Allergies: No Known Allergies (Unverified , 05/30/17) Discharge Date / Findings May 30, 2017. Colon polyps Internal hemorrhoids Medication Instructions Stopped Medication(s): Plavix and asa 05/23/17 OK to resume all medications today as prescribed Reported Home Medications Medications Dose Route/Sig Max Daily Dose Days Date Category Lasix (Furosemide) 20 Mg Tab 20 Mg PO DAILY PRN 05/25/17 Reported Zestril (Lisinopril) 40 Mg Tab 40 Mg PO QAM 05/25/17 Reported Aspirin Chewable (Aspirin) 81 Mg Chew 81 Mg PO QAM 04/08/15 Reported Simvastatin 40 Mg Tab 40 Mg PO QAM 08/16/14 Reported Prilosec (Omeprazole) 20 Mg Capcr 20 Mg PO QAM 08/16/14 Reported Clopidogrel (Clopidogrel Bisulfate) 75 Mg Tab 75 Mg PO QAM 08/16/14 Reported Metoprolol Tartrate 100 Mg Tab 100 Mg PO BID 08/16/14 Reported Provider Instructions Activity Restrictions - No exercising or heavy lifting for 24 hours. - Do not drink alcohol the day of the procedure. - Do not drive a car or operate machinery until the day after the procedure. - Do not make any important decisions or sign important papers in 24 hours after the procedure. Following Day: - Return to full activity which may include returning to work/school. Diet Start your diet with liquids and light foods (jello, soup, juice, toast). Then eat your usual diet if not nauseated. Treatment For Common After Affects For mild abdominal pain, bloating, or excessive gas: - Rest - Eat lightly - Lie on right side Follow-Up Information Follow-up with Fabian Ashley as scheduled Anesthesia Information What You Should Know You have had a procedure that required some medicine to reduce anxiety and discomfort. This treatment is called moderate sedation. After receiving the treatment, you may be sleepy, but you will be able to breathe on your own. The effects of the treatment may last for several hours. Follow these instructions along with Activity/Diet recommendations noted above: * Do NOT do anything where dizziness or clumsiness would be dangerous. * Rest quietly at home today, then you can be up and about tomorrow. * Have a responsible person stay with you the rest of today. * You may have had an I.V. today. If so, you may take the dressing off later today. Recommendations Call your doctor if: * Trouble breathing * Continuous vomiting for more than 24 hours * Temperature above 101 degrees * Severe abdominal pain or bloating * Pain not relieved by pain medicine ordered * There is increased drainage or redness from any incision * A large amount of rectal bleeding greater than 2-3 tablespoons. (If you had a polyp/s removed or have hemorrhoids, a small amount of blood - from the rectum is to be expected.) * You have any unanswered questions or concerns. IN THE EVENT OF A SERIOUS EMERGENCY, GO TO THE NEAREST EMERGENCY ROOM Your discharge instructions were prepared by provider Davonte Morton. Patient Instructions Signature Page Oscar Sheehan Patient (or Guardian) Signature/Date: I have read and understand the instructions given to me by my caregivers. Caregiver/RN/Doctor Signature/Date: The above-named patient and/or guardian has received patient instructions on this date. + Original Patient Signature Page (only) stays with chart. Please make copy for patient.
--- NOTE | 2017-05-30 10:53 | Anesthesiology Progress Note ---
Anesthesia Post Op Note Date & Time May 30, 2017 at 10:52 Vital Signs Pain Intensity: 0 Vital Signs Past 12 Hours Date Time Temp Pulse Resp B/P (MAP) Pulse Ox O2 Delivery O2 Flow Rate FiO2 05/30/17 10:46 65 16 113/63 (80) 94 Room Air 05/30/17 09:45 58 20 140/77 (98) 94 Room Air 05/30/17 09:42 56 20 193/115 (141) 94 Room Air 05/30/17 09:24 36.9 57 20 182/92 (122) 94 Room Air Notes Mental Status: alert / awake / arousable, participated in evaluation Pt Amnestic to Procedure: Yes Nausea / Vomiting: adequately controlled Pain: adequately controlled Airway Patency, RR, SpO2: stable & adequate BP & HR: stable & adequate Hydration State: stable & adequate Anesthetic Complications: no major complications apparent
[2017-05-30 11:15] VITALS: BP 115/56; PULSE 56; O2SAT 93
== END | disposition home or self-care (01) ==
LOC: C.GI 08:54
PROVIDERS: ATTEND Internal Medicine
DX: K62.5 Hemorrhage of anus and rectum (principal); D12.2 Benign neoplasm of ascending colon; K64.8 Other hemorrhoids; K21.9 Gastro-esophageal reflux disease without esophagitis; E78.00 Pure hypercholesterolemia, unspecified; I10 Essential (primary) hypertension; G47.33 Obstructive sleep apnea (adult) (pediatric); I25.2 Old myocardial infarction; E78.5 Hyperlipidemia, unspecified; M19.90 Unspecified osteoarthritis, unspecified site; Z95.5 Presence of coronary angioplasty implant and graft; Z87.891 Personal history of nicotine dependence; Z85.820 Personal history of malignant melanoma of skin; Z79.82 Long term (current) use of aspirin; Z79.02 Long term (current) use of antithrombotics/antiplatelets; Z96.643 Presence of artificial hip joint, bilateral

== ENCOUNTER 2023-02-05 08:59 | Inpatient (IN) ==
--- NOTE | 2023-02-05 09:20 | Emergency Department Note ---
Impression & Plan Hypoxia ADMIT ED Provider Note HPI: History obtained from patient. The patient is a 72-year-old gentleman with history of coronary artery disease, CHF with preserved ejection fraction, who presents emergency department chief complaint of shortness of breath. Patient states that his symptoms seem to be worsening since he woke up this morning. On arrival here to the ED patient is noted to be hypoxic on room air to 88% was placed on nasal cannula oxygen with good improvement. He does not normally require supplemental oxygen. Patient denies any chest pain, denies any recent fever, denies any cough. Of note, patient states that he recently had carpal tunnel surgery that was performed just 2 days ago. ROS: - Per HPI Differential Diagnosis: Acute CHF exacerbation with hypoxia, COPD exacerbation, pneumonia, pulmonary embolism, pulmonary edema, amongst other potential pathologies. *Outpatient medications and allergy history reviewed. *Pertinent external medical records reviewed PE: General: Alert HEENT: Normocephalic, trachea midline Eyes: Extraocular eye movement is intact, no scleral erythema Pulmonary: Diminished bilateral breath sounds without wheezing or crackles Cardio: Regular rate and rhythm GI: Abdomen is soft to palpation : No suprapubic tenderness MSK: Albert bandage overlying the left wrist with some moderate swelling of the digits of the left hand, otherwise no evidence of trauma or malformation of the extremities, no edema Skin: No evidence of rash Neuro: Alert, no focal deficits Psychiatric: Cooperative INDEPENDENT INTERPRETATIONS: media monitor: (As interpreted by myself): - An order was placed for continuous cardiac monitoring - Patient was noted to be in sinus rhythm with a rate of 58 EKG: (As interpreted by myself): Rate: 54 Rhythm: Sinus bradycardia Intervals: Within normal limits ST changes: No ST elevation Time: 918 Interventions provided in ED: -IV Lasix, sublingual nitroglycerin Medical Decision Making: IV was established lab work obtained, patient was placed on nurse monitoring. Lab work shows no leukocytosis, hemoglobin is normal, platelet count is normal, venous blood gas shows slight acidosis at 7.28, PCO2 mildly elevated at 63, CMP does not show any critical findings, initial high-sensitivity troponin level is mildly elevated at 21.1, BNP is 198. CT angiography of the chest was performed, there is no evidence of pulmonary embolism within the main vasculature, there are changes consistent with pulmonary edema which I likely believe is the source of the patient's dyspnea. Patient is hypoxic at 88% on presentation and is stabilized with 4 L nasal cannula oxygen. He was given IV Lasix and sublingual nitroglycerin, case was discussed with the admitting hospitalist service for Mariana Garner, and the patient was placed for admission in stable condition. Consultants/Discussions held with other healthcare providers: -Hospitalist, Dr. Hernandez Disposition discussion held by myself with: -Patient and family members at the bedside * CRITICAL CARE TIME: ( 33 ) minutes -Stabilization of hypoxia with oxygen saturations less than 90% on room air requiring supplemental oxygen for correction, time spent at the bedside, discussion with other healthcare providers and arrangement of admission. Diagnosis: 1. Hypoxia, acute 2. Pulmonary edema, acute 3. Dyspnea, acute 4. Elevated high-sensitivity troponin level 5. Hypertension, established Disposition: Admission Abdoulaye Marie DO Emergency Medicine Past Med/Surg History Medical History Hx of gout Arthritis Myocardial Infarction AT AGE 37 History of skin cancer Anxiety Dyslipidemia (high LDL; low HDL) Tubular adenoma of colon 05/30/2017 Severe obstructive sleep apnea NO DEVICE Hypertension FOLLOWS WITH DR. AGUILERA GERD without esophagitis DM (diabetes mellitus), type 2 CAD (coronary artery disease) BMI 45.0-49.9, adult (HFpEF) heart failure with preserved ejection fraction patient states positive CARDOZA, follows with Ignacio Calderon Surgical History History of colonoscopy History of tooth extraction S/P coronary artery stent placement X 2 2008 @ [facility] S/P hip replacement RT/LEFT Hx of CABG X2 vessel in 2006 @ [facility], PCI x2 to the RCA 2008. Family History Mother Kidney disease Hypertension Gallbladder disease Other No family history of adverse response to anesthesia Denies family history of Ovarian cancer Prostate cancer Breast cancer Lung cancer Colorectal cancer Social History Smoking Status: Unknown if ever smoked Age Started Using Tobacco: 13; Age Quit Using Tobacco: 37; Second Hand Exposure: No; Do You Dip or Chew Tobacco: No; Hx Alcohol Use: Yes Alcohol type: beer Alcohol Intake Frequency: Monthly or Less Hx Substance Use: No Preferred Language: Kuwaiti Communication Ability: Effective Visual Impairment: No Limitations Hearing Ability: Normal Collator Hand Required: No Beliefs That Will Affect Care: None marital status: Current Living Situation: Spouse current occupational status: retired Feels Safe at Home: Yes Childhood Exposure to Second-Hand Smoke: No Diet: regular Diet Comment: regular caffeine: Yes (coffee) during the past year weight has: remained stable Dental Care, Regularly: Yes Physical Activity Frequency: 1-2 Times per Week Physical Activity Frequency Comment: walking Seatbelt Use: always Sunscreen Use: Yes Assistive Devices: None Allergies Allergies Allergy/AdvReac Type Severity Reaction Status Date / Time No Known Drug Allergies Allergy Verified 02/03/23 06:14 Home Meds Home Medications Medication Instructions Recorded Confirmed aspirin 81 mg tablet,delayed 81 mg PO QAM 08/25/18 02/05/23 release (Ermelinda Low Dose Aspirin) furosemide 20 mg tablet 20 mg PO QAM PRN weight gain, 01/26/23 02/05/23 swelling, and/or shortness of breath sertraline 50 mg tablet 50 mg PO QAM 02/05/23 02/05/23 Previous Rx's Medication Instructions Recorded nitroglycerin 0.4 mg sublingual 0.4 mg sublingual Q5M PRN chest 10/08/21 tablet (Nitrostat) pain #25 Tabs metformin 500 mg tablet 500 mg PO QAM #90 tabs 08/18/22 metoprolol tartrate 100 mg tablet 100 mg PO Q12H #180 tabs 08/18/22 clopidogrel 75 mg tablet 75 mg PO QAM #90 tabs 12/17/22 lisinopril 40 mg tablet 40 mg PO QAM #90 tabs 01/10/23 simvastatin 40 mg tablet 40 mg PO QAM #90 tabs 01/10/23 omeprazole 20 mg capsule,delayed 20 mg PO QAM #90 caps 01/11/23 release oxycodone-acetaminophen 5 mg-325 1 tab PO Q6H PRN pain #20 tabs 02/03/23 mg tablet (Percocet) Results & Data (ED) Vital Signs Vital Signs - 24 hr 02/05/23 09:05 02/05/23 09:05 02/05/23 09:12 Temperature 36.6 C Temperature Source Oral Pulse Rate 52 L Pulse Rhythm Regular Pulse Strength Normal Respiratory Rate 18 Respiratory Effort / Characteristics Spontaneous Labored Spontaneous Gasping/Agonal Respiratory Depth Normal Respiratory Pattern Regular Regular Blood Pressure 196/73 H Blood Pressure Mean 114 Pulse Oximetry 88 L 88 L Oxygen Delivery Method Room Air Nasal Cannula Room Air Oxygen Flow Rate Sepsis Recent Fever Within 48 Hours No Sepsis New/Unexplained Change in Mental Status No Sepsis Action Taken by Nursing No Action Required Oxygen Flow Rate - Titration 4 Pulse Oximetry Post Tiitration 96 02/05/23 09:16 02/05/23 09:39 Temperature Temperature Source Pulse Rate 52 L Pulse Rhythm Pulse Strength Respiratory Rate Respiratory Effort / Characteristics Respiratory Depth Respiratory Pattern Blood Pressure Blood Pressure Mean Pulse Oximetry 96 Oxygen Delivery Method Nasal Cannula Oxygen Flow Rate 4 Sepsis Recent Fever Within 48 Hours Sepsis New/Unexplained Change in Mental Status Sepsis Action Taken by Nursing Oxygen Flow Rate - Titration Pulse Oximetry Post Tiitration Laboratory Data 02/05/23 09:30 02/05/23 09:30 Lab Results 02/05/23 02/05/23 02/05/23 Range/Units 09:30 09:30 09:33 WBC 7.94 (4.8-10.8) K/ul RBC 4.77 (4.70-6.10) M/uL Hgb 14.3 (14.0-18.0) g/dl Hct 44.8 (42.0-52.0) % MCV 93.9 (80.0-100.0) fL MCH 30.0 (25.0-34.0) pg MCHC 31.9 L (32.0-36.0) g/dL RDW Std Deviation 42.5 (36.4-46.3) fL RDW Coeff of Mode 12.3 (11.5-14.5) % Plt Count 208 (130-400) K/uL MPV 10.0 (9.4-12.4) fL Immature Gran % (Auto) 0.3 % Neut % (Auto) 69.6 % Lymph % (Auto) 18.9 % Converse % (Auto) 8.7 % Eos % (Auto) 2.0 % Baso % (Auto) 0.5 % Neut # (Auto) 5.53 (1.40-6.50) K/uL Lymph # (Auto) 1.50 (1.20-3.40) K/uL Converse # (Auto) 0.69 H (0.11-0.59) K/uL Eos # (Auto) 0.16 (0.00-0.50) K/uL Baso # (Auto) 0.04 (0.00-0.20) K/uL Immature Gran # (Auto) 0.02 (0.01-0.20) K/uL PT 11.2 (9.0-12.0) Seconds INR 1.0 (0.9-1.1) VBG pH 7.28 L (7.36-7.41) VBG pCO2 63 H (38-50) mmHg VBG pO2 42 mmHg VBG HCO3 30 mmol/L VBG O2 Saturation 67.6 % VBG Base Excess 1.2 mEq/L Sodium 137 (136-145) mmol/L Potassium 5.0 (3.5-5.1) mmol/L Chloride 102 (98-107) mmol/L Carbon Dioxide 31 (21-32) mmol/L Anion Gap 4 (3-11) BUN 22 (6-23) mg/dl Creatinine 1.17 (0.6-1.4) mg/dl Est Cr Clr Drug Dosing 128.7 ml/min Est GFR ( Amer) 70.8 ml/min Est GFR (Non-Af Amer) 61.1 ml/min BUN/Creatinine Ratio 18.8 (10-20) Glucose 105 H (70-99(Fasting)) mg/dl Calcium 9.4 (8.6-10.3) mg/dl Total Bilirubin 0.4 (0.2-1.0) mg/dl AST 24 (13-39) U/L ALT 23 (7-52) U/L Alkaline Phosphatase 49 (34-104) U/L Troponin I High Sens 22.1 H Cancelled (0-20) pg/ml B-Natriuretic Peptide 198 H (0-100) pg/ml Total Protein 6.8 (6.0-8.3) gm/dl Albumin 4.1 (3.4-5.0) gm/dl Globulin 2.7 (2.5-4.0) gm/dl Albumin/Globulin Ratio 1.5 (0.9-2) Adenovirus (PCR) Not Detected (NotDetected) B. pertussis DNA (PCR) Not Detected (NotDetected) B.parapertussis DNA PCR Not Detected (NotDetected) C. pneumoniae DNA (PCR) Not Detected (NotDetected) Coronavirus OC43 (PCR) Not Detected (NotDetected) Coronavirus HKU1 (PCR) Not Detected (NotDetected) Coronavirus 229E (PCR) Not Detected (NotDetected) SARS-CoV-2 (PCR) Not Detected (NotDetected) Coronavirus NL63 (PCR) Not Detected (NotDetected) Human Metapneumovir PCR Not Detected (NotDetected) Influenza Type A (PCR) Not Detected (NotDetected) Influenza Type B (PCR) Not Detected (NotDetected) M. pneumoniae (PCR) Not Detected (NotDetected) Parainfluenza 1 (PCR) Not Detected (NotDetected) Parainfluenza 2 (PCR) Not Detected (NotDetected) Parainfluenza 3 (PCR) Not Detected (NotDetected) Parainfluenza 4 (PCR) Not Detected (NotDetected) RSV (PCR) Not Detected (NotDetected) Entero/Rhino (PCR) Not Detected (NotDetected) 02/05/23 Range/Units 11:26 WBC (4.8-10.8) K/ul RBC (4.70-6.10) M/uL Hgb (14.0-18.0) g/dl Hct (42.0-52.0) % MCV (80.0-100.0) fL MCH (25.0-34.0) pg MCHC (32.0-36.0) g/dL RDW Std Deviation (36.4-46.3) fL RDW Coeff of Mode (11.5-14.5) % Plt Count (130-400) K/uL MPV (9.4-12.4) fL Immature Gran % (Auto) % Neut % (Auto) % Lymph % (Auto) % Converse % (Auto) % Eos % (Auto) % Baso % (Auto) % Neut # (Auto) (1.40-6.50) K/uL Lymph # (Auto) (1.20-3.40) K/uL Converse # (Auto) (0.11-0.59) K/uL Eos # (Auto) (0.00-0.50) K/uL Baso # (Auto) (0.00-0.20) K/uL Immature Gran # (Auto) (0.01-0.20) K/uL PT (9.0-12.0) Seconds INR (0.9-1.1) VBG pH (7.36-7.41) VBG pCO2 (38-50) mmHg VBG pO2 mmHg VBG HCO3 mmol/L VBG O2 Saturation % VBG Base Excess mEq/L Sodium (136-145) mmol/L Potassium (3.5-5.1) mmol/L Chloride (98-107) mmol/L Carbon Dioxide (21-32) mmol/L Anion Gap (3-11) BUN (6-23) mg/dl Creatinine (0.6-1.4) mg/dl Est Cr Clr Drug Dosing ml/min Est GFR ( Amer) ml/min Est GFR (Non-Af Amer) ml/min BUN/Creatinine Ratio (10-20) Glucose (70-99(Fasting)) mg/dl Calcium (8.6-10.3) mg/dl Total Bilirubin (0.2-1.0) mg/dl AST (13-39) U/L ALT (7-52) U/L Alkaline Phosphatase (34-104) U/L Troponin I High Sens 21.1 H (0-20) pg/ml B-Natriuretic Peptide (0-100) pg/ml Total Protein (6.0-8.3) gm/dl Albumin (3.4-5.0) gm/dl Globulin (2.5-4.0) gm/dl Albumin/Globulin Ratio (0.9-2) Adenovirus (PCR) (NotDetected) B. pertussis DNA (PCR) (NotDetected) B.parapertussis DNA PCR (NotDetected) C. pneumoniae DNA (PCR) (NotDetected) Coronavirus OC43 (PCR) (NotDetected) Coronavirus HKU1 (PCR) (NotDetected) Coronavirus 229E (PCR) (NotDetected) SARS-CoV-2 (PCR) (NotDetected) Coronavirus NL63 (PCR) (NotDetected) Human Metapneumovir PCR (NotDetected) Influenza Type A (PCR) (NotDetected) Influenza Type B (PCR) (NotDetected) M. pneumoniae (PCR) (NotDetected) Parainfluenza 1 (PCR) (NotDetected) Parainfluenza 2 (PCR) (NotDetected) Parainfluenza 3 (PCR) (NotDetected) Parainfluenza 4 (PCR) (NotDetected) RSV (PCR) (NotDetected) Entero/Rhino (PCR) (NotDetected) Administered Medications Discontinued Medications Furosemide (Furosemide 40 Mg/4 Ml Vial) 40 mg IV ONE ONE Stop: 02/05/23 11:14 Last Admin: 02/05/23 11:33 Dose: 40 mg Documented By: EULALIA Ioversol (Optiray 320 500ml) 111 ml IV ONCE ONE Stop: 02/05/23 10:56 Last Admin: 02/05/23 10:55 Dose: 111 ml Documented By: LIZABETH Nitroglycerin (Nitroglycerin Sl 0.4 Mg/Tab Tab) 0.4 mg SL NOW STA Stop: 02/05/23 11:23 Last Admin: 02/05/23 11:36 Dose: 0.4 mg Documented By: EULALIA Imaging Data Radiologist's Impression: Chest CTA 02/05/23 09:16 CT ANGIOGRAPHY OF THE CHEST, PULMONARY EMBOLUS PROTOCOL CLINICAL HISTORY: Dyspnea. COMPARISON STUDY: Chest radiograph March 04, 2016. TECHNIQUE: Following IV administration of 111 mL of Optiray, helical axial images of the chest were obtained utilizing the pulmonary embolus protocol. Maximal intensity projections and sagittal and coronal reformats were viewed on an independent 3D workstation. IV contrast was administered without complication. Automated exposure control was utilized for the study. A dose lowering technique was utilized adhering to the principles of ALARA. CT DOSE: 918.79 mGy.cm FINDINGS: No pulmonary emboli are identified although the segmental and subsegmental pulmonary arteries are suboptimally assessed due to respiratory motion. There is mild dilatation of the central pulmonary arteries. There is moderate cardiomegaly. No pericardial effusion is present. Median sternotomy wires are present. There is moderate aortic valvular calcification. Extensive coronary artery calcification is present. There is no thoracic lymphadenopathy. No consolidation is present. Mild groundglass opacities with mosaic attenuation within the lungs are present. There is no pneumothorax or pleural effusion. No acute fractures within the bony thorax are present. Hepatic steatosis is incidentally noted. IMPRESSION: 1. No pulmonary emboli identified although segmental and subsegmental pulmonary arteries suboptimally assessed due to respiratory motion. 2. Ground glass opacities with mosaic attenuation within the lungs. The findings could reflect air trapping or atelectasis. Mild pulmonary edema could appear similar. No consolidation to suggest pneumonia. 3. Moderate cardiomegaly and extensive coronary artery calcification. Moderate aortic valvular calcification. 4. Hepatic steatosis. ACT 112: Negative or not required by law. Electronically signed by: Valdo Brooks M.D. 02/05/2023 11:09 AM Discharge Plan Visit Data Chief Complaint: Shortness of Breath/Dyspnea Stated Complaint: SOB ED Provider: Abdoulaye Marie Discharge Problem: Hypoxia Forms Stand Alone Forms: My [facility]ha[facility] Prescriptions Prescriptions: No Action clopidogrel 75 mg tablet 75 mg PO QAM Qty: 90 1RF simvastatin 40 mg tablet 40 mg PO QAM Qty: 90 1RF lisinopril 40 mg tablet 40 mg PO QAM Qty: 90 1RF omeprazole 20 mg capsule,delayed release(DR/EC) 20 mg PO QAM Qty: 90 1RF metformin 500 mg tablet 500 mg PO QAM Qty: 90 1RF metoprolol tartrate 100 mg tablet 100 mg PO Q12H Qty: 180 3RF aspirin [Ermelinda Low Dose Aspirin] 81 mg tablet,delayed release (DR/EC) 81 mg PO QAM nitroglycerin [Nitrostat] 0.4 mg tablet, sublingual 0.4 mg sublingual Q5M PRN (Reason: chest pain) Qty: 25 3RF sertraline 50 mg tablet 50 mg PO QAM furosemide 20 mg tablet 20 mg PO QAM PRN (Reason: weight gain, swelling, and/or shortness of breath) oxycodone-acetaminophen [Percocet] 5-325 mg tablet 1 tab PO Q6H PRN (Reason: pain) Qty: 20 0RF Referrals Referrals: Darvin Hopson CRNP [Primary Care Provider] -
[2023-02-05 10:09] LABS: Base Excess VBG 1.2 mEq/L; HCO3 VBG 30 mmol/L; Oxygen Saturation VBG 67.6 %; PCO2 VBG 63 mmHg (38-50); PO2 VBG 42 mmHg; pH VBG 7.28 (7.36-7.41)
[2023-02-05 10:16] LABS: Basophils # (auto) 0.04 K/uL (0.00-0.20); Basophils % (auto) 0.5 %; Eosinophils # (auto) 0.16 K/uL (0.00-0.50); Hematocrit (blood only) 44.8 % (42.0-52.0); Hemoglobin 14.3 g/dl (14.0-18.0); Immature Granulocytes # (auto) 0.02 K/uL (0.01-0.20); Immature Granulocytes % (auto) 0.3 %; Lymphocytes % (auto) 18.9 %; Mean Corpuscular Hgb Conc 31.9 g/dL (32.0-36.0); Mean Corpuscular Volume 93.9 fL (80.0-100.0); Monocytes # (auto) 0.69 K/uL (0.11-0.59); Monocytes % (auto) 8.7 %; Neutrophils # (auto) 5.53 K/uL (1.40-6.50); Neutrophils % (auto) 69.6 %; Platelet Count 208 K/uL (130-400); RDW Coefficient of Variation 12.3 % (11.5-14.5); RDW Standard Deviation 42.5 fL (36.4-46.3); Red Blood Count 4.77 M/uL (4.70-6.10); White Blood Count 7.94 K/ul (4.8-10.8)
[2023-02-05 10:34] LABS: Albumin Globulin Ratio 1.5 (0.9-2); Albumin Level 4.1 gm/dl (3.4-5.0); BUN Creatinine Ratio 18.8 (10-20); Bilirubin,Total 0.4 mg/dl (0.2-1.0); Calcium 9.4 mg/dl (8.6-10.3); Creatinine Clr Calc Pharmacy 128.7 ml/min; Est GFR (African American) 70.8 ml/min; Est GFR (Non-African American) 61.1 ml/min; Globulin 2.7 gm/dl (2.5-4.0); Total Protein 6.8 gm/dl (6.0-8.3)
[2023-02-05 10:41] LABS: Troponin I High Sensitivity 22.1 pg/ml (0-20)
[2023-02-05 10:43] LABS: Prothrombin Time 11.2 Seconds (9.0-12.0)
[2023-02-05] MEDS ORDERED: OPTIRAY 320 500ml IV ONE (10:55)
[2023-02-05 10:58] LABS: Adenovirus PCR Not Detected (NotDetected); Bordetella parapertussis PCR Not Detected (NotDetected); Bordetella pertussis PCR Not Detected (NotDetected); Chlamydia pneumoniae PCR Not Detected (NotDetected); Coronavirus 229E PCR Not Detected (NotDetected); Coronavirus CoV-2 (COVID19)PCR Not Detected (NotDetected); Coronavirus HKU1 PCR Not Detected (NotDetected); Coronavirus NL63 PCR Not Detected (NotDetected); Coronavirus OC43PCR Not Detected (NotDetected); Human Metapneumovirus PCR Not Detected (NotDetected); Influenza A PCR Not Detected (NotDetected); Influenza B PCR Not Detected (NotDetected); Mycoplasma pneumoniae PCR Not Detected (NotDetected); Parainfluenza Virus 1 PCR Not Detected (NotDetected); Parainfluenza Virus 2 PCR Not Detected (NotDetected); Parainfluenza Virus 3 PCR Not Detected (NotDetected); Parainfluenza Virus 4 PCR Not Detected (NotDetected); Respiratory Syncytial VirusPCR Not Detected (NotDetected); Rhinovirus/Enterovirus PCR Not Detected (NotDetected)
--- NOTE | 2023-02-05 11:11 | CT Scan Report ---
CT ANGIOGRAPHY OF THE CHEST, PULMONARY EMBOLUS PROTOCOL CLINICAL HISTORY: Dyspnea. COMPARISON STUDY: Chest radiograph March 04, 2016. TECHNIQUE: Following IV administration of 111 mL of Optiray, helical axial images of the chest were o btained utilizing the pulmonary embolus protocol. Maximal intensity projections and sagittal and cor onal reformats were viewed on an independent 3D workstation. IV contrast was administered without co mplication. Automated exposure control was utilized for the study. A dose lowering technique was ut ilized adhering to the principles of ALARA. CT DOSE: 918.79 mGy.cm FINDINGS: No pulmonary emboli are identified although the segmental and subsegmental pulmonary arter ies are suboptimally assessed due to respiratory motion. There is mild dilatation of the central pulm onary arteries. There is moderate cardiomegaly. No pericardial effusion is present. Median sternotomy wires are present. There is moderate aortic valvular calcification. Extensive coronary artery calcif ication is present. There is no thoracic lymphadenopathy. No consolidation is present. Mild groundgla ss opacities with mosaic attenuation within the lungs are present. There is no pneumothorax or pleura l effusion. No acute fractures within the bony thorax are present. Hepatic steatosis is incidentally noted. IMPRESSION: 1. No pulmonary emboli identified although segmental and subsegmental pulmonary arteries suboptimally assessed due to respiratory motion. 2. Ground glass opacities with mosaic attenuation within the lungs. The findings could reflect air tr apping or atelectasis. Mild pulmonary edema could appear similar. No consolidation to suggest pneumon ia. 3. Moderate cardiomegaly and extensive coronary artery calcification. Moderate aortic valvular calcif ication. 4. Hepatic steatosis. ACT 112: Negative or not required by law. Electronically signed by: Valdo Brooks M.D. 02/05/2023 11:09 AM
[2023-02-05] MEDS ORDERED: FUROSEMIDE 40 MG/4 ML VIAL IV ONE (11:13)
[2023-02-05] MEDS ORDERED: NITROGLYCERIN SL 0.4 MG/TAB TAB SL STA (11:22)
--- NOTE | 2023-02-05 12:02 | History & Physical Report ---
Date of Service February 05, 2023 Assessment & Plan (1) Acute exacerbation of CHF (congestive heart failure): Plan: SOB started morning of 02/05 at 0600 Clinically, patient denies chest pain Troponin mildly elevated at 22.1 on arrival, trend pending Elevated BNP at 198 Chest CTA reported "no pulmonary emboli identified although segmental and subsegmental pulmonary arteries suboptimally assessed due to respiratory motion"; groundglass opacity; no PNA EKG sinus bradycardia at 54 bpm No leukocytosis; afebrile VBG pH 7.28 VBG PCO2 63 BioFire negative Supplemental oxygen as needed to maintain SPO2 >94% Nitroglycerin 0.4 mg SL as needed for chest pain Continue Lasix 40 mg IV twice daily Continuous telemetry monitoring Electrolytes WNL; maintain K >4, Mag >2 Last echo on 03/10/2021 showed LVEF at 50% Reordered limited TTE to look for interval EF changes A.m. CBC, BMP, mag, VBG (2) CAD (coronary artery disease): Plan: CABG x2 in 2006 PCI x2 to RCA in 2008 with stent placement Continue aspirin and clopidogrel (3) DM (diabetes mellitus), type 2: Plan: Last A1c 6.2% on 08/19/2019 Glucose 105 on arrival Loose SSI while inpatient; BSG target goal 110-160mg/dL, CF 50, no carb ratio T2DM diet Hold metformin Adjust regimen as needed AM A1c (4) Hypertension: Plan: BP 196/73 on arrival Continue lisinopril, metoprolol (5) GERD without esophagitis: Plan: Continue omeprazole (6) Severe obstructive sleep apnea: Plan: Reports no CPAP usage at home Given VBG pH 7.28, we will add on BiPAP at bedtime while inpatient (7) Anxiety: Plan: Continue sertraline (8) Dyslipidemia (high LDL; low HDL): Plan: Continue simvastatin (9) Carpal tunnel syndrome of left wrist: Plan: Recent left carpal tunnel surgery on 02/[address] Pimentel Plan Disposition: Admit to [facility] Telemetry AHA/T2DM/low Na diet (fluid restriction 1800 mL daily) Full code VTE PPx: SCDs, Lovenox 40 mg SQ q12h History of Present Illness Chief Complaint: Shortness of breath/dyspnea Primary Care Provider: AMELIA Winston Oscar is a 72-year-old male with PMH of HFpEF, CAD s/p stent placement, CABG, T2DM, GERD, HTN, VIVIENNE, anxiety, and HLD. He presented for SOB that started the morning of 0600 on 02/05 upon waking. Hypoxic on RA at SPO2 88% on arrival. The SOB is at rest and with exertion. It is worse when lying supine. He denies at home oxygen use. He denies using his CPAP at night. Did not take his morning medications. He has Lasix as needed, but does not take it. Former tobacco cigarette smoker; quit when he was 37yo. He denies alcohol use, vaping, or recreational drug use. Patient had carpal tunnel surgery on 02/[address] Carlos Manuel Pimentel. No sick contact. No recent changes in diet; he reports that he does not watch his salt intake. Patient follows with Dr. Ignacio Calderon for cardiology. ED course: Lasix 40 mg IV Nitrostat 0.4 mg SL IVF ROS: Patient endorses SOB at rest. Patient denies fever, chills, sweating, dizziness, lightheadedness, RENO, CP, cough, pleurtic CP, hemoptysis, abdominal pain, N/V/D, burning with urination, or numbing/tingling/pain/swelling in legs. Patient denies PMHx of DVT/PE Allergies Allergy/AdvReac Type Severity Reaction Status Date / Time No Known Drug Allergies Allergy Verified 02/03/23 06:14 Home Medications Medication Instructions Recorded Confirmed Type aspirin 81 mg tablet,delayed 81 mg PO QAM 08/25/18 02/05/23 History release (Ermelinda Low Dose Aspirin) nitroglycerin 0.4 mg sublingual 0.4 mg sublingual Q5M PRN chest 10/08/21 02/05/23 Rx tablet (Nitrostat) pain #25 Tabs metformin 500 mg tablet 500 mg PO QAM #90 tabs 08/18/22 02/05/23 Rx metoprolol tartrate 100 mg tablet 100 mg PO Q12H #180 tabs 08/18/22 02/05/23 Rx clopidogrel 75 mg tablet 75 mg PO QAM #90 tabs 12/17/22 02/05/23 Rx lisinopril 40 mg tablet 40 mg PO QAM #90 tabs 01/10/23 02/05/23 Rx simvastatin 40 mg tablet 40 mg PO QAM #90 tabs 01/10/23 02/05/23 Rx omeprazole 20 mg capsule,delayed 20 mg PO QAM #90 caps 01/11/23 02/05/23 Rx release furosemide 20 mg tablet 20 mg PO QAM PRN weight gain, 01/26/23 02/05/23 History swelling, and/or shortness of breath oxycodone-acetaminophen 5 mg-325 1 tab PO Q6H PRN pain #20 tabs 02/03/23 02/05/23 Rx mg tablet (Percocet) sertraline 50 mg tablet 50 mg PO QAM 02/05/23 02/05/23 History Past Med/Surg History Medical History Hx of gout Arthritis Myocardial Infarction AT AGE 37 History of skin cancer Anxiety Dyslipidemia (high LDL; low HDL) Tubular adenoma of colon 05/30/2017 Severe obstructive sleep apnea NO DEVICE Hypertension FOLLOWS WITH DR. AGUILERA GERD without esophagitis DM (diabetes mellitus), type 2 CAD (coronary artery disease) BMI 45.0-49.9, adult (HFpEF) heart failure with preserved ejection fraction patient states positive CARDOZA, follows with Ignacio Calderon Surgical History History of colonoscopy History of tooth extraction S/P coronary artery stent placement X 2 2008 @ [facility] S/P hip replacement RT/LEFT Hx of CABG X2 vessel in 2006 @ [facility], PCI x2 to the RCA 2008. Family History Mother Kidney disease Hypertension Gallbladder disease Other No family history of adverse response to anesthesia Denies family history of Ovarian cancer Prostate cancer Breast cancer Lung cancer Colorectal cancer Social History Smoking Status: Former smoker Tobacco Type: Cigarettes Age Started Using Tobacco: 13; Age Quit Using Tobacco: 37; Second Hand Exposure: No; Do You Dip or Chew Tobacco: No; Hx Alcohol Use: No Hx Substance Use: No Preferred Language: German Communication Ability: Effective Visual Impairment: No Limitations Hearing Ability: Normal Generator Worker Required: No Beliefs That Will Affect Care: None marital status: Current Living Situation: Spouse current occupational status: retired Feels Safe at Home: Yes Childhood Exposure to Second-Hand Smoke: No Diet: regular Diet Comment: regular caffeine: Yes (coffee) during the past year weight has: remained stable Dental Care, Regularly: Yes Physical Activity Frequency: 1-2 Times per Week Physical Activity Frequency Comment: walking Seatbelt Use: always Sunscreen Use: Yes Assistive Devices: None Review of Systems Review of Systems: See HPI above Physical Exam Physical Exam: General: Mild respiratory distress; patient is winded when walking back from the bathroom; non-toxic appearing; well-nourished; cooperative; SpO2 95% on 4L NC HEENT: normocephalic, atraumatic; no scleral icterus; PERRLA w/ EOMs intact; moist mucus membrane; vision and hearing grossly intact Neck: supple; no JVD; no lymphadenopathy; trachea midline Skin: warm, dry without signs of tenting; no cyanosis; no rashes, bruising, lesions, or erythema noted CV: chest wall NTP; RRR; S1/S2 normal; no murmurs/rubs/gallops; pulses intact and symmetric at radial, DP, and PT; brisk capillary refill in the left fingers Lungs: no acute respiratory distress; symmetrical chest wall expansion; clear breath sounds across all lung sinclair w/o adventitious sounds; no wheezing ABD: Soft, NTP; BS present; no rebound/guarding; no ascites; no distention; negative CVA tenderness MSK: no tics or fasciculations; no edema noted in the LEs b/l Neuro: A&Ox3; normal mood and affect; fluent speech; sensation grossly intact in the LEs B/L Results & Data Results & Data Vital Signs (Past 12 Hours) Vital Signs Temp Pulse Resp BP Pulse Ox O2 Del Method O2 Flow Rate 02/05/23 09:39 52 L 02/05/23 09:16 96 Nasal Cannula 4 02/05/23 09:12 36.6 C 52 L 18 196/73 H 88 L Room Air 02/05/23 09:05 88 L Room Air, Nasal Cannula Laboratory Results Abnormal lab results 02/05/23 Range/Units 09:30 MCHC 31.9 L (32.0-36.0) g/dL [place] # (Auto) 0.69 H (0.11-0.59) K/uL VBG pH 7.28 L (7.36-7.41) VBG pCO2 63 H (38-50) mmHg Glucose 105 H (70-99(Fasting)) mg/dl Troponin I High Sens 22.1 H (0-20) pg/ml B-Natriuretic Peptide 198 H (0-100) pg/ml Diagnostic Findings Chest CTA 02/05/23 09:16 CT ANGIOGRAPHY OF THE CHEST, PULMONARY EMBOLUS PROTOCOL CLINICAL HISTORY: Dyspnea. COMPARISON STUDY: Chest radiograph March 04, 2016. TECHNIQUE: Following IV administration of 111 mL of Optiray, helical axial images of the chest were obtained utilizing the pulmonary embolus protocol. M aximal intensity projections and sagittal and coronal reformats were viewed on an independent 3D workstation. IV contrast was administered without complication. Automated exposure control was utilized for the study. A dose lowering technique was utilized adhering to the principles of ALARA. CT DOSE: 918.79 mGy.cm FINDINGS: No pulmonary emboli are identified although the segmental and s ubsegmental pulmonary arteries are suboptimally assessed due to respiratory motion. There is mild dilatation of the central pulmonary arteries. There is moderate cardiomegaly. No pericardial effusion is present. Median sternotomy wires are present. There is moderate aortic valvular calcification. Extensive coronary artery calcification is present. There is no thoracic lymphadenopathy. No consolidation is present. Mild groundglass opacities with mosaic attenuation within the lungs are present. There is no pneumothorax or pleural effusion. No acute fractures within the bony thorax are present. Hepatic steatosis is incidentally noted. IMPRESSION: 1. No pulmonary emboli identified although segmental and subsegmental pulmonary arteries suboptimally assessed due to respiratory motion. 2. Ground glass opacities with mosaic attenuation within the lungs. The findings could reflect air trapping or atelectasis. Mild pulmonary edema could appear similar. No consolidation to suggest pneumonia. 3. Moderate cardiomegaly and extensive coronary artery calcification. Moderate aortic valvular calcification. 4. Hepatic steatosis. ACT 112: Negative or not required by law. Electronically signed by: Valdo Brooks M.D. 02/05/2023 11:09 AM Code Status & VTE Plan Code Status Full code VTE Prophylaxis Plan VTE Prophylaxis will be ordered: Yes Supervising Physician Co-Signing Physician Notes Patient seen and examined, chart reviewed, case discussed with Shayne Wilkinson, PAC and I agree with the assessment and plan as above except as otherwise noted Labs and images reviewed 72yo M who presents with AoC CHF. CTA shows no PE although suboptimal study, GGO suspicious for atelectasis versus pulmonary edema. BNP is elevated, troponin is mildly elevated and downtrending without chest pain suspicious for demand. Patient is approximately 5 kg above his last weight and around 5-8 kg above normal dry weight on prior review. Lungs ar ediminished in the bases + b asilar crackles which clear, no rales. HR regular, bradycardic. Legs are without edema, JVD is not present .agree with treatment of acute CHF. Last EF 20 2150%, had apical akinesis at that time. Continue Lasix twice daily, low- salt diet, fluid restricted 1800 cc/day, strict ins and outs He has a history of cardiac stents, did transiently stop Plavix but is resume DAPT post carpal tunnel surgery.. Continue this. Metoprolol held x1 for bradycardia, resume this tonight or tomorrow if heart rate is normal. Patient has a history of sleep apnea for which she does not use a CPAP, does have a respiratory acidosis with CO2 of 63 on admission. Morning VBG added, BiPAP at bedtime ordered. We will also place on BiPAP for 3-4 hours and repeat VBG due to admitting acidosis. PG Care Time/CCT Total # of Minutes Spent Total Time Spent with Patient: Total time spent is greater than 50% in coordination of care (as documented) at patient's floor/unit and/or counseling patient: C[place] [address] INT INP/OBS CARE 2/55MIN Patient Type Established History Comprehensive Exam Comprehensive Medical Decision Making Moderate Complexity Diagnoses Acute exacerbation of CHF (congestive heart failure) I50.9 CAD (coronary artery disease) I25.10 DM (diabetes mellitus), type 2 E11.9 Hypertension I10 GERD without esophagitis K21.9 Severe obstructive sleep apnea G47.33 Anxiety F41.9 Dyslipidemia (high LDL; low HDL) E78.5 Carpal tunnel syndrome of left wrist G56.02
--- NOTE | 2023-02-05 13:53 | XCELERA ---
[id number] \\[id number]
[2023-02-05] MEDS ORDERED: DEXTROSE 50% 50 ML SYRINGE IV PRN (15:34)
[2023-02-05] MEDS ORDERED: GLUCOSE 40% GEL 15 GM TUBE PO PRN (15:34)
[2023-02-05] MEDS ORDERED: CARBOHYDRATES FOR HYPOGLYCEMIA PO PRN (15:34)
[2023-02-05] MEDS ORDERED: GLUCOSE 10 TAB/TUBE PO PRN (15:34)
[2023-02-05] MEDS ORDERED: NITROGLYCERIN SL 0.4 MG/TAB TAB SL PRN (15:34)
[2023-02-05] MEDS ORDERED: ACETAMINOPHEN 325 MG TAB PO PRN (15:34)
[2023-02-05] MEDS ORDERED: GLUCAGON FOR INJ 1 MG VIAL SQ PRN (15:34)
[2023-02-05] MEDS: INSULIN ASPART PER UNIT CHARGE SC SCH ×2 (17:01→21:00)
[2023-02-05] MEDS: FUROSEMIDE 40 MG/4 ML VIAL IV SCH (17:02)
[2023-02-05] MEDS: ENOXAPARIN INJ 40 MG/0.4 ML SYR SQ SCH (21:01)
[2023-02-05] MEDS: METOPROLOL TARTRATE 100 MG TAB PO SCH (21:01)
[2023-02-06 05:42] LABS: Base Excess VBG 9.2 mEq/L; HCO3 VBG 37 mmol/L; Oxygen Saturation VBG 92.1 %; PCO2 VBG 62 mmHg (38-50); PO2 VBG 61 mmHg; pH VBG 7.38 (7.36-7.41)
[2023-02-06 05:52] LABS: Basophils # (auto) 0.04 K/uL (0.00-0.20); Basophils % (auto) 0.6 %; Eosinophils # (auto) 0.14 K/uL (0.00-0.50); Eosinophils % (auto) 2.1 %; Hematocrit (blood only) 48.4 % (42.0-52.0); Hemoglobin 15.2 g/dl (14.0-18.0); Immature Granulocytes # (auto) 0.01 K/uL (0.01-0.20); Immature Granulocytes % (auto) 0.2 %; Lymphocytes # (auto) 1.46 K/uL (1.20-3.40); Lymphocytes % (auto) 22.2 %; Mean Corpuscular Hemoglobin 29.3 pg (25.0-34.0); Mean Corpuscular Hgb Conc 31.4 g/dL (32.0-36.0); Mean Corpuscular Volume 93.4 fL (80.0-100.0); Mean Platelet Volume 9.5 fL (9.4-12.4); Monocytes # (auto) 0.72 K/uL (0.11-0.59); Monocytes % (auto) 10.9 %; Neutrophils # (auto) 4.21 K/uL (1.40-6.50); Platelet Count 225 K/uL (130-400); RDW Coefficient of Variation 12.3 % (11.5-14.5); RDW Standard Deviation 42.5 fL (36.4-46.3); Red Blood Count 5.18 M/uL (4.70-6.10); White Blood Count 6.58 K/ul (4.8-10.8)
[2023-02-06 06:05] LABS: BUN Creatinine Ratio 19.8 (10-20); Calcium 9.9 mg/dl (8.6-10.3); Creatinine Clr Calc Pharmacy 77.8 ml/min; Est GFR (African American) 71.5 ml/min; Est GFR (Non-African American) 61.7 ml/min; Magnesium 1.6 mg/dl (1.7-2.4); Potassium 4.4 mmol/L (3.5-5.1)
[2023-02-06] MEDS: INSULIN ASPART PER UNIT CHARGE SC SCH ×4 (07:42→21:31)
[2023-02-06] MEDS: PANTOprazole 40 MG TAB PO SCH (07:44)
[2023-02-06] MEDS: lisinopril 40 MG TAB PO SCH (07:44)
[2023-02-06] MEDS: ASPIRIN 81 MG ECTAB PO SCH (07:45)
[2023-02-06] MEDS: SIMVASTATIN 40 MG TAB PO SCH (07:45)
[2023-02-06] MEDS: CLOPIDOGREL BISULFATE 75 MG TAB PO SCH (07:45)
[2023-02-06] MEDS: SERTRALINE HCL 50 MG TABLET PO SCH (07:45)
[2023-02-06] MEDS: ENOXAPARIN INJ 40 MG/0.4 ML SYR SQ SCH (07:46)
[2023-02-06] MEDS: FUROSEMIDE 40 MG/4 ML VIAL IV SCH ×2 (07:46→18:12)
[2023-02-06] MEDS: METOPROLOL TARTRATE 100 MG TAB PO SCH (07:48)
[2023-02-06 07:50] LABS: Appearance Urine Clear (Clear); Bilirubin Urine Negative (Negative); Blood Urine Negative (Negative); Color Urine Yellow; Glucose Urine UA Negative (Negative); Ketones Urine Negative (Negative); Leukocyte Esterase Urine Negative (Negative); Nitrite Urine Negative (Negative); Protein Urine Negative (Negative); Specific Gravity Urine 1.025 (1.000-1.030); Urobilinogen Urine Negative (Negative); pH Urine 5.5 (4.5-7.5)
[2023-02-06] MEDS: POLYETHYLENE (MIRALAX) 17 GM PACK PO PRN ×2 (12:42→21:56)
[2023-02-06] MEDS ORDERED: METOPROLOL TARTRATE 50 MG TAB PO SCH (13:02)
--- NOTE | 2023-02-06 14:55 | Hospitalist Progress Note ---
Date of Service February 06, 2023 Assessment & Plan (1) Acute exacerbation of CHF (congestive heart failure): Plan: - SOB started morning of 02/05 at 0600 - Troponin mildly elevated at 22.1 on arrival, trend downward. Elevated BNP at 198 - 02/06 echoL EF 45-50%, borderline LVH - consistent with 02/2021 echo - Chest CTA reported "no pulmonary emboli identified although segmental and subsegmental pulmonary arteries suboptimally assessed due to respiratory motion"; groundglass opacity; no PNA - repeat VBG PCO2 62, pH 7.38 - Supplemental oxygen as needed to maintain SPO2 >93% - Continue Lasix 40 mg IV twice daily, daily standing weights (dry weight ~139kg) - Mag 1.6 --> replaced orally (2) CAD (coronary artery disease): Plan: CABG x2 in 2006 PCI x2 to RCA in 2008 with stent placement Continue aspirin and clopidogrel (3) DM (diabetes mellitus), type 2: Plan: - Last A1c 6.2% on 08/19/2019, repeat A1c pending - Hold home metformin - Loose SSI while inpatient; BSG target goal 110-160mg/dL, CF 50, no carb ratio (4) Hypertension: Plan: BP 196/73 on arrival - Continue home lisinopril - Metoprolol decreased to 50mg BID given persistent rates in 50s (5) GERD without esophagitis: Plan: Continue omeprazole (6) Severe obstructive sleep apnea: Plan: - Reports no CPAP usage at home - contributing to hypercapnia, suspect chronic - patient refuses bipap/cpap (7) Anxiety: Plan: Continue sertraline (8) Dyslipidemia (high LDL; low HDL): Plan: Continue simvastatin (9) Carpal tunnel syndrome of left wrist: Plan: Recent left carpal tunnel surgery on 02/[address] Pimentel - increased IVF and narcotic use after surgery likely contributing to increase in VIVIENNE --> hypercapnia and worsening CHF exacerbation Plan Disposition: Continued MedTele stay VTE PPx: SCDs, Lovenox 40 mg SQ Admission and Anticipated Discharge Date Admission Date: February 05, 2023 Subjective Patient seen this morning sitting on the side of the bed. Reports still feeling short of breath, but denies cough. Hx of CHF but has not noticed increased swelling in his legs, but only takes his lasix as needed. Reports his dry weight is ~306lbs, and weight was 304lbs today. Denies any chest pain. Of note he had carpal tunnel sx 02/[address] Pimentel. He had been taking narcotics at home for this, but does feel like his pain is controlled. Has lead to constipation from this. Tele: sinus with PVCs, 40-50s, bigeminy Review of Systems Review of Systems: All systems reviewed & are unremarkable except as noted in Subjective Physical Exam Constitutional: WD/WN, vitals as above ENMT: external ear and nose normal, oropharynx normal (MMM) Respiratory: normal respiratory effort, lungs clear to auscultation nasal canual present - 4L Cardiovascular: RRR, no murmur, no edema Gastrointestinal (Abdomen): normal bowel sounds, soft, nontender, no hepatosplenomegaly Skin: no rashes, warm and dry Lymphatic: bilateral legs without edema Results & Data Results & Data Vital Signs (Past 12 Hours) Vital Signs Temp Pulse Pulse Resp BP Pulse Ox O2 Del Method 02/06/23 11:25 36.4 C L 42 L 18 155/73 H 96 Nasal Cannula 02/06/23 07:34 36.4 C L 55 L 16 168/91 H 90 Room Air 02/06/23 06:00 47 L 02/06/23 03:33 36.8 C 51 L 18 142/67 H 94 Nasal Cannula O2 Flow Rate 02/06/23 11:25 4 02/06/23 07:34 02/06/23 06:00 02/06/23 03:33 4 Laboratory Results Laboratory Results - last 24 hr 02/05/23 02/05/23 02/06/23 15:38 20:46 05:30 WBC 6.58 RBC 5.18 Hgb 15.2 Hct 48.4 MCV 93.4 MCH 29.3 MCHC 31.4 L RDW Std Deviation 42.5 RDW Coeff of Mode 12.3 Plt Count 225 MPV 9.5 Immature Gran % (Auto) 0.2 Neut % (Auto) 64.0 Lymph % (Auto) 22.2 [place] % (Auto) 10.9 Eos % (Auto) 2.1 Baso % (Auto) 0.6 Neut # (Auto) 4.21 Lymph # (Auto) 1.46 [place] # (Auto) 0.72 H Eos # (Auto) 0.14 Baso # (Auto) 0.04 Immature Gran # (Auto) 0.01 VBG pH 7.38 VBG pCO2 62 H VBG pO2 61 VBG HCO3 37 VBG O2 Saturation 92.1 VBG Base Excess 9.2 Sodium 138 Potassium 4.4 Chloride 99 Carbon Dioxide 33 H Anion Gap 6 BUN 23 Creatinine 1.16 Est Cr Clr Drug Dosing 77.8 Est GFR ( Amer) 71.5 Est GFR (Non-Af Amer) 61.7 BUN/Creatinine Ratio 19.8 Glucose 109 H POC Glucose 91 100 H Estimat Average Glucose Pending Hemoglobin A1c Pending Calcium 9.9 Magnesium 1.6 L 02/06/23 02/06/23 02/06/23 08:13 12:26 Unknown POC Glucose 113 H 98 Estimat Average Glucose Hemoglobin A1c Calcium Magnesium Urine Color Yellow Urine Appearance Clear Urine pH 5.5 Ur Specific [place] 1.025 Urine Protein Negative Urine Glucose (UA) Negative Urine Ketones Negative Urine Blood Negative Urine Nitrite Negative Urine Bilirubin Negative Urine Urobilinogen Negative Ur Leukocyte Esterase Negative PG Care Time/CCT Total # of Minutes Spent Total Time Spent with Patient: Total time spent is greater than 50% in coordination of care (as documented) at patient's floor/unit and/or counseling patient: Coding Level of Care Code 64679 SUB INP/OBS CARE 3/50MIN Diagnoses Acute exacerbation of CHF (congestive heart failure) I50.9 CAD (coronary artery disease) I25.10 DM (diabetes mellitus), type 2 E11.9 Hypertension I10 GERD without esophagitis K21.9 Severe obstructive sleep apnea G47.33 Anxiety F41.9 Dyslipidemia (high LDL; low HDL) E78.5 Carpal tunnel syndrome of left wrist G56.02
[2023-02-06] MEDS ORDERED: MAGNESIUM OXIDE 400 MG TAB PO ONE (15:30)
--- NOTE | 2023-02-06 19:57 | Electrocardiogram Report ---
Test Reason : Blood Pressure : / mmHG Vent. Rate : 054 BPM Atrial Rate : 054 BPM P-R Int : 166 ms QRS Dur : 092 ms QT Int : 464 ms P-R-T Axes : 000 017 047 degrees QTc Int : 440 ms Sinus bradycardia Low voltage QRS Cannot rule out Anterior infarct , age undetermined Abnormal ECG When compared with ECG of 21-JAN-2023 10:36, No significant change was found Confirmed by Larry Booth ([id number]) on 02/06/2023 7:56:43 PM Referred By: REFERRED SELF Confirmed By:Larry Booth
[2023-02-06] MEDS: METOPROLOL TARTRATE 50 MG TAB PO SCH (21:53)
[2023-02-07 06:30] LABS: Basophils # (auto) 0.03 K/uL (0.00-0.20); Basophils % (auto) 0.4 %; Eosinophils # (auto) 0.12 K/uL (0.00-0.50); Eosinophils % (auto) 1.6 %; Hematocrit (blood only) 46.8 % (42.0-52.0); Hemoglobin 15.6 g/dl (14.0-18.0); Immature Granulocytes # (auto) 0.03 K/uL (0.01-0.20); Immature Granulocytes % (auto) 0.4 %; Lymphocytes # (auto) 1.41 K/uL (1.20-3.40); Lymphocytes % (auto) 19.3 %; Mean Corpuscular Hemoglobin 30.8 pg (25.0-34.0); Mean Corpuscular Hgb Conc 33.3 g/dL (32.0-36.0); Mean Corpuscular Volume 92.3 fL (80.0-100.0); Mean Platelet Volume 9.6 fL (9.4-12.4); Monocytes # (auto) 0.79 K/uL (0.11-0.59); Monocytes % (auto) 10.8 %; Neutrophils # (auto) 4.91 K/uL (1.40-6.50); Neutrophils % (auto) 67.5 %; Platelet Count 215 K/uL (130-400); RDW Coefficient of Variation 12.4 % (11.5-14.5); RDW Standard Deviation 41.9 fL (36.4-46.3); Red Blood Count 5.07 M/uL (4.70-6.10); White Blood Count 7.29 K/ul (4.8-10.8)
[2023-02-07 06:52] LABS: BUN Creatinine Ratio 21.6 (10-20); Calcium 9.8 mg/dl (8.6-10.3); Creatinine Clr Calc Pharmacy 71.9 ml/min; Est GFR (African American) 65.3 ml/min; Est GFR (Non-African American) 56.4 ml/min; Potassium 4.3 mmol/L (3.5-5.1)
[2023-02-07] MEDS ORDERED: INFLUENZA VACCINE HIGH-DOSE (HD-IIV4) PF 65+ 0.7mL SYR IM ONE (07:26)
[2023-02-07] MEDS: ASPIRIN 81 MG ECTAB PO SCH (07:40)
[2023-02-07] MEDS: CLOPIDOGREL BISULFATE 75 MG TAB PO SCH (07:41)
[2023-02-07] MEDS: METOPROLOL TARTRATE 50 MG TAB PO SCH (07:41)
[2023-02-07] MEDS: SERTRALINE HCL 50 MG TABLET PO SCH (07:41)
[2023-02-07] MEDS: SIMVASTATIN 40 MG TAB PO SCH (07:42)
[2023-02-07] MEDS: PANTOprazole 40 MG TAB PO SCH (07:42)
[2023-02-07] MEDS: FUROSEMIDE 40 MG/4 ML VIAL IV SCH ×2 (07:43→18:11)
[2023-02-07] MEDS: lisinopril 40 MG TAB PO SCH (07:43)
[2023-02-07] MEDS: ENOXAPARIN INJ 40 MG/0.4 ML SYR SQ SCH (07:47)
[2023-02-07 08:39] LABS: Estimated Average Glucose 134 mg/dl; Hemoglobin A1C 6.3 % (4.5-5.6)
[2023-02-07] MEDS: INSULIN ASPART PER UNIT CHARGE SC SCH ×4 (09:22→20:58)
--- NOTE | 2023-02-07 13:13 | XRay Report ---
XR chest 2V PA/lateral CLINICAL HISTORY: respiratory failure COMPARISON STUDY: No previous studies for comparison. FINDINGS: No pneumothorax or pleural effusion is present. No consolidation is identified to suggest p neumonia. Cardiomegaly is again noted. There are median sternotomy wires. There is no evidence for pu lmonary edema. The appearance of the chest is unchanged. IMPRESSION: No acute cardiopulmonary findings. No change in appearance of the chest. ACT 112: Negative or not required by law. Electronically signed by: Valdo Brooks M.D. 02/07/2023 1:12 PM
--- NOTE | 2023-02-07 16:48 | Hospitalist Progress Note ---
Date of Service February 07, 2023 Assessment & Plan (1) Acute exacerbation of CHF (congestive heart failure): Plan: Systolic. Known ejection fraction 45%. Chest x-ray done today, February 07, looks much better. Known ejection fraction of 45%. Chest CTA negative for PE. (2) Acute respiratory failure with hypoxia: Plan: Supplemental oxygen per nasal cannula to maintain saturation greater than 90%. Wean off as tolerated. Treat CHF (3) CAD (coronary artery disease): Plan: CABG x2 in 2006 and PCI x2 to RCA in 2008 with stent placement. Stable. Continue aspirin and clopidogrel (4) DM (diabetes mellitus), type 2: Plan: ADA diet. Sliding scale coverage as needed. Metformin is on hold. (5) Hypertension: Plan: Blood pressure elevated on arrival. Now improved. Metoprolol has been decreased this admission. Continue lisinopril. (6) GERD without esophagitis: Plan: Stable continue omeprazole (7) Severe obstructive sleep apnea: Plan: Stable. Reports no CPAP usage at home. Patient refuses bipap/cpap (8) Dyslipidemia (high LDL; low HDL): Plan: Stable. Continue simvastatin Plan Hopeful discharge to home tomorrow, February 08 Admission and Anticipated Discharge Date Admission Date: February 05, 2023 Subjective Alert and oriented. No acute distress. Chest x-ray done today, February 07, looks better. Metoprolol dosage down titrated due to mild bradycardia. He is only requiring 1 L of oxygen per nasal cannula and this will be weaned off prior to discharge. Hopefully he can go home tomorrow, February 08 Review of Systems 2 Review of Systems: Constitutional-no fever or chills ENT-no blurred vision, no double vision, no epistaxis, no sore throat Respiratory-no cough, no wheezing, no shortness of breath Cardiac-no palpitations, no chest pain, no syncope GI-no nausea, vomiting, diarrhea, melena, hematochezia -no urinary retention, no urinary incontinence, no dysuria, no hematuria Musculoskeletal-no joint pain, no muscle tenderness Skin-no bruising, no rashes, no pruritus Neuro-no isolated weakness, no paresthesia, no weakness Psych-no depression, no anxiety Physical Exam 2 Physical Exam: General-alert and oriented x3, no fevers, no chills. Obese HEENT-head atraumatic and normocephalic, pupils equal and reactive to light, extraocular muscles intact Neck-no lymphadenopathy or thyromegaly, trachea midline Chest-clear to auscultation percussion. No rales, wheezing or rhonchi Cardiac-regular rate and rhythm, normal S1 and S2 Abdomen-normal bowel sounds, nontender, no hepatosplenomegaly Extremities-no cyanosis, clubbing, or edema Neuro-cranial nerves II through XII intact, motor and sensory function within normal limits, strength symmetrical, no focal deficits Psych-normal affect, normal mood Results & Data Results & Data Vital Signs (Past 12 Hours) Vital Signs Temp Pulse Pulse Pulse Resp BP Pulse Ox 02/07/23 16:07 36.4 C L 62 16 149/83 H 93 02/07/23 14:43 73 02/07/23 13:25 36.4 C L 58 L 24 122/76 95 02/07/23 07:52 36.4 C L 56 L 22 146/82 H 94 02/07/23 07:18 56 L 02/07/23 04:54 36.7 C 53 L 18 157/77 H 92 O2 Del Method O2 Flow Rate 02/07/23 16:07 Nasal Cannula 1 02/07/23 14:43 02/07/23 13:25 Nasal Cannula 1 02/07/23 07:52 Nasal Cannula 1 02/07/23 07:18 02/07/23 04:54 Nasal Cannula Laboratory Results 02/07/23 06:07 02/07/23 06:07 PG Care Time/CCT Total # of Minutes Spent Total Time Spent with Patient: Total time spent is greater than 50% in coordination of care (as documented) at patient's floor/unit and/or counseling patient: Coding Level of Care Code 36076 SUB INP/OBS CARE 3/50MIN Diagnoses Acute exacerbation of CHF (congestive heart failure) I50.9 Acute respiratory failure with hypoxia J96.01 CAD (coronary artery disease) I25.10 DM (diabetes mellitus), type 2 E11.9 Hypertension I10 GERD without esophagitis K21.9 Severe obstructive sleep apnea G47.33 Dyslipidemia (high LDL; low HDL) E78.5
[2023-02-07] MEDS: METOPROLOL TARTRATE 25 MG TAB PO SCH (20:59)
[2023-02-08] MEDS: ENOXAPARIN INJ 40 MG/0.4 ML SYR SQ SCH (08:30)
[2023-02-08] MEDS: METOPROLOL TARTRATE 25 MG TAB PO SCH (08:31)
[2023-02-08] MEDS: FUROSEMIDE 40 MG/4 ML VIAL IV SCH (08:31)
[2023-02-08] MEDS: lisinopril 40 MG TAB PO SCH (08:31)
[2023-02-08] MEDS: ASPIRIN 81 MG ECTAB PO SCH (08:31)
[2023-02-08] MEDS: SIMVASTATIN 40 MG TAB PO SCH (08:31)
[2023-02-08] MEDS: SERTRALINE HCL 50 MG TABLET PO SCH (08:31)
[2023-02-08] MEDS: PANTOprazole 40 MG TAB PO SCH (08:31)
[2023-02-08] MEDS: CLOPIDOGREL BISULFATE 75 MG TAB PO SCH (08:31)
[2023-02-08] MEDS: INSULIN ASPART PER UNIT CHARGE SC SCH ×2 (08:34→11:39)
[2023-02-08 08:55] LABS: BUN Creatinine Ratio 23.1 (10-20); Calcium 10.4 mg/dl (8.6-10.3); Creatinine Clr Calc Pharmacy 55.9 ml/min; Est GFR (African American) 48.5 ml/min; Est GFR (Non-African American) 41.8 ml/min; Potassium 4.3 mmol/L (3.5-5.1)
--- NOTE | 2023-02-08 12:38 | Discharge Summary ---
Date of Service February 08, 2023 Admission HPI Per Admitting Provider Oscar is a 72-year-old male with PMH of HFpEF, CAD s/p stent placement, CABG, T2DM, GERD, HTN, VIVIENNE, anxiety, and HLD. He presented for SOB that started the morning of 0600 on 02/05 upon waking. Hypoxic on RA at SPO2 88% on arrival. The SOB is at rest and with exertion. It is worse when lying supine. He denies at home oxygen use. He denies using his CPAP at night. Did not take his morning medications. He has Lasix as needed, but does not take it. Former tobacco cigarette smoker; quit when he was 37yo. He denies alcohol use, vaping, or recreational drug use. Patient had carpal tunnel surgery on 02/[address] Carlos Manuel Pimentel. No sick contact. No recent changes in diet; he reports that he does not watch his salt intake. Patient follows with Dr. Ignacio Calderon for cardiology. ED course: Lasix 40 mg IV Nitrostat 0.4 mg SL IVF ROS: Patient endorses SOB at rest. Patient denies fever, chills, sweating, dizziness, lightheadedness, RENO, CP, cough, pleurtic CP, hemoptysis, abdominal pain, N/V/D, burning with urination, or numbing/tingling/pain/swelling in legs. Patient denies PMHx of DVT/PE Principal Diagnosis Acute on chronic systolic congestive heart failure, transient hypoxic respiratory failure, uncontrolled hypertension, sinus bradycardia Discharge Exam General-alert and oriented x3, no fevers, no chills. Obese HEENT-head atraumatic and normocephalic, pupils equal and reactive to light, extraocular muscles intact Neck-no lymphadenopathy or thyromegaly, trachea midline Chest-clear to auscultation percussion. No rales, wheezing or rhonchi Cardiac-regular rate and rhythm, normal S1 and S2 Abdomen-normal bowel sounds, nontender, no hepatosplenomegaly Extremities-no cyanosis, clubbing, or edema Neuro-cranial nerves II through XII intact, motor and sensory function within normal limits, strength symmetrical, no focal deficits Psych-normal affect, normal mood Discharge Data Allergies Allergy/AdvReac Type Severity Reaction Status Date / Time No Known Drug Allergies Allergy Verified 02/03/23 06:14 Consultations 02/05/23 11:39 ED Decision to Admit Stat Ordered Studies 02/05/23 09:16 CT angio chest PE protocol Stat Hospital Course (1) Acute exacerbation of CHF (congestive heart failure): Systolic. Known ejection fraction 45%. Chest x-ray done on February 07, looked much better. Known ejection fraction of 45%. Chest CTA negative for PE. (2) Acute respiratory failure with hypoxia: Supplemental oxygen per nasal cannula has been weaned off. He is now on room air (3) CAD (coronary artery disease): CABG x2 in 2006 and PCI x2 to RCA in 2008 with stent placement. Stable. Continue aspirin and clopidogrel (4) DM (diabetes mellitus), type 2: ADA diet. Sliding scale coverage as needed. Metformin was held while hospitali zed and restarted at discharge (5) Hypertension: Blood pressure elevated on arrival. Now improved. Metoprolol has been decreased this admission due to bradycardia. Continue lisinopril. (6) GERD without esophagitis: Stable continue omeprazole (7) Severe obstructive sleep apnea: Stable. Reports no CPAP usage at home. Patient refuses bipap/cpap (8) Dyslipidemia (high LDL; low HDL): Stable. Continue simvastatin (9) Bradycardia: Resolved with decreased dosing of metoprolol Plan Home today, February 08. He will take Lasix on a daily basis now. Metoprolol dosage has been down titrated Total Time Total Time Spent Total Time Spent (In Minutes): 45 minutes Discharge Plan Discharge Items Patient Disposition: Home - Self-Care Reason For Visit: SOB/DYSPNEA Discharge Diagnosis: Acute on chronic systolic congestive heart failure, acute hypoxic respiratory failure, sinus bradycardia, uncontrolled hypertension Activity: Resume your previous activity Non-emergency contact: Primary Care Provider Call non-emergency contact if: you have any medication questions and your symptoms worsen Follow-up/Referrals: Darvin Hopson CRNP [Primary Care Provider] - Diet: Carb Consistent or DM2 and Heart Healthy Addtl Attending Provider Instructions: Take Lasix daily after lunch. Metoprolol dosage has been decreased Pending Studies at Discharge: No Stand-Alone Forms: My Vyclone, Smoking Cessation Medications and DC Order Prescriptions: New furosemide 40 mg Tablet 40 mg PO QAM Qty: 30 0RF metoprolol tartrate 25 mg Tablet 25 mg PO BID Qty: 60 0RF Continued clopidogrel 75 mg tablet 75 mg PO QAM Qty: 90 1RF simvastatin 40 mg tablet 40 mg PO QAM Qty: 90 1RF lisinopril 40 mg tablet 40 mg PO QAM Qty: 90 1RF omeprazole 20 mg capsule,delayed release(DR/EC) 20 mg PO QAM Qty: 90 1RF metformin 500 mg tablet 500 mg PO QAM Qty: 90 1RF aspirin [Ermelinda Low Dose Aspirin] 81 mg tablet,delayed release (DR/EC) 81 mg PO QAM nitroglycerin [Nitrostat] 0.4 mg tablet, sublingual 0.4 mg sublingual Q5M PRN (Reason: chest pain) Qty: 25 3RF sertraline 50 mg tablet 50 mg PO QAM oxycodone-acetaminophen [Percocet] 5-325 mg tablet 1 tab PO Q6H PRN (Reason: pain) Qty: 20 0RF Discontinued metoprolol tartrate 100 mg tablet 100 mg PO Q12H Qty: 180 3RF furosemide 20 mg tablet 20 mg PO QAM PRN (Reason: weight gain, swelling, and/or shortness of breath) Discharge Orders: Discharge Order- CHF (Routine); Ordered 02/08/23 Ordered By: Tony Salinas/Other Patient Handouts: Managing Type 2 Diabetes, Carpal Tunnel Syndrome, Coping with Heart Failure Admission Data Admit Date/Time: 02/05/23 12:50 Attending Provider: Tony Arredondo Admit Provider: Fabian Hernandez Primary Care Provider: Darvin Hopson Other Providers: Fabian Hernandez Other Interventions: Discharge Summary Assessment (RN) Last Done: 02/08/23 11:47 Coding Level of Care Code 91979 INP/OBS DISCH >30 MIN Diagnoses Acute exacerbation of CHF (congestive heart failure) I50.9 Acute respiratory failure with hypoxia J96.01 CAD (coronary artery disease) I25.10 DM (diabetes mellitus), type 2 E11.9 Hypertension I10 GERD without esophagitis K21.9 Severe obstructive sleep apnea G47.33 Dyslipidemia (high LDL; low HDL) E78.5 Bradycardia R00.1
[2023-02-09] MEDS ORDERED: FUROSEMIDE 40 MG TAB PO SCH (09:00)
== END 2023-02-08 13:03 | disposition home or self-care (01) | DRG 291 ==
LOC: ED 08:59 → SUATTDRO 12:50 → 2W 12:50